=== PATIENT | female | born 1940 | race Caucasian/White ===

== ENCOUNTER 2017-10-13 09:16 | Day surgery (SDC) | payer MEDICARE, OTHER ==
[~2017-10-13 09:16] MED LIST: Lactated Ringers 1,000 ML IV SCH; Sodium Chloride 0.9% 10 ML Syringe FLUSH PRN
[2017-10-13] MEDS ORDERED: Midazolam 1 MG/ML 2 ML SDV ONE ×2 (10:15→10:19)
[2017-10-13] MEDS ORDERED: fentaNYL 100 MCG/2 ML SDV ONE ×2 (10:15→10:19)
[2017-10-13] MEDS ORDERED: Propofol 200 MG/20 ML SDV ONE ×2 (10:16→10:19)
--- NOTE | 2017-10-13 10:23 | PCM.HP ---
H&P History of Present Illness - General Date of Service: 10/13/17 Admit Problem/Dx: Admission Diagnosis/Problem Admission Diagnosis/Problem Esophagogastroduodenoscopy Source of Information: Patient, Old Records History Limitations: Reports: No Limitations - History of Present Illness Initial Comments - Free Text/Narative: Hx of nausea and vomiting for past few months Improves with: Reports: None Worsens with: Reports: None Associated Symptoms: Reports: No Other Symptoms (No blood, mostly bilious) - Related Data Allergies/Adverse Reactions: Allergies Allergy/AdvReac Type Severity Reaction Status Date / Time fish oil Allergy Other Verified 10/13/17 09:58 rosuvastatin calcium Allergy Itching Verified 10/13/17 09:58 [From Crestor] Home Medications: Home Meds Acetaminophen [Mapap] 325 mg PO Q4H PRN 03/11/16 [History] Bisoprolol/Hydrochlorothiazide [Ziac 5-6.25 MG] 1 tab PO DAILY 03/11/16 [History ] Cholecalciferol (Vitamin D3) [Vitamin D3] 1,000 unit PO DAILY 03/11/16 [History] Latanoprost [Xalatan 0.005% Ophth Soln] 2.5 ml EYEBOTH BEDTIME 03/11/16 [History ] Lisinopril [Zestril] 10 mg PO DAILY 03/11/16 [History] Multivitamin [Multivitamins] 1 each PO DAILY 03/11/16 [History] Naphazoline [AK-Con 0.1% Ophth Soln] 1 - 2 drop OP DAILY 03/11/16 [History] atorvaSTATin [Lipitor] 40 mg PO BEDTIME 03/11/16 [History] hydrOXYzine Pamoate [Vistaril] 25 mg PO BEDTIME PRN 03/11/16 [History] Warfarin [Coumadin] 5 mg PO DAILY 10/13/17 [History] Past Medical History HEENT History: Reports: Glaucoma Other HEENT History: Previously detached retina with surgery as below Cardiovascular History: Reports: High Cholesterol, Hypertension, Other (See Below) Other Cardiovascular History: AV COMPLETE HEART BLOCK, BRADYCARDIA, Respiratory History: Reports: Other (See Below) Other Respiratory History: HYPOXIA, SLEEP RELATED, PULMONARY GRANULOMA PER X- RAY. Gastrointestinal History: Reports: Diverticulosis, GI Bleed, PUD, Other (See Below) Other Gastrointestinal History: OBESITY, DUODENAL ULCER 2009 WITH BICAP COAGULATION, TUBULAR ADENOMA OF COLON, UMBILICAL HERNIA, HYPERPLASTIC POLYP, HISTORY OF ADENOMATOUS POLYPS. HX OF POSITIVE H PYLORI Genitourinary History: Reports: Other (See Below) Other Genitourinary History: RENAL CELL CANCER (HCC) RIGHT. 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 Other Dermatologic History: Seborrheic keratosis - Past Surgical History HEENT Surgical History: Reports: Cataract Surgery, Detached Retina GI Surgical History: Reports: Cholecystectomy, Colonoscopy, Hernia Repair/Other , Polypectomy, Other (See Below) Musculoskeletal Surgical History: Reports: Knee Replacement Social & Family History - Tobacco Use Smoking Status *Q: Never Smoker Second Hand Smoke Exposure: Yes - Alcohol Use Days Per Week of Alcohol Use: 0 Number of Drinks Per Day: 1 (Occasional wine every couple of months) Total Drinks Per Week: 0 - Recreational Drug Use Recreational Drug Use: No Drug Use in Last 12 Months: No - Living Situation & Occupation Living situation: Reports: , with Family Occupation: Retired H&P Review of Systems - Review of Systems: Review Of Systems: See Below General: Reports: No Symptoms Pulmonary: Reports: No Symptoms Cardiovascular: Reports: No Symptoms Gastrointestinal: Reports: Nausea Exam - Exam Exam: See Below - Vital Signs Vital Signs: Last Vital Signs Temp 98 F 10/13/17 10:06 Pulse 62 10/13/17 10:06 Resp 20 10/13/17 10:06 BP 124/73 10/13/17 10:06 Pulse Ox 96 10/13/17 10:06 Weight: 98.43 kg - Exam General: Alert, Oriented Lungs: Clear to Auscultation, Normal Respiratory Effort Cardiovascular: Regular Rate, Regular Rhythm GI/Abdominal Exam: Soft, Non-Tender Problem List Initiated/Reviewed/Updated: Yes Orders Last 24hrs: Active Orders 24 hr Category Date Time Status Patient Status [ADT] Routine ADT 10/13/17 09:15 Active Peripheral IV Care [RC] . DIRECTED Care 10/13/17 09:15 Active Verify Patient Consent Obtain [RC] ASDIRECTED Care 10/13/17 09:15 Active Lactated Ringers [Ringers, Lactated] 1,000 ml Med 10/13/17 09:15 Active IV ASDIRECTED Sodium Chloride 0.9% [Saline Flush] Med 10/13/17 09:15 Active 10 ml FLUSH ASDIRECTED PRN Peripheral IV Insertion Adult [OM.PC] Routine Oth 10/13/17 09:15 Ordered Medication Orders Lactated Ringer's (Ringers, Lactated) 1,000 mls @ 125 mls/hr IV ASDIRECTED SHIRA Last Admin: 10/13/17 09:57 Dose: 125 mls/hr Sodium Chloride (Saline Flush) 10 ml FLUSH ASDIRECTED PRN PRN Reason: Keep Vein Open Assessment/Plan Comment:: Nausea and Vomiting Ok to proceed with EGD
--- NOTE | 2017-10-13 10:38 | PCM.OPNOTE ---
- General Post-Op/Procedure Note Date of Surgery/Procedure: 10/13/17 Operative Procedure(s): EGD with Bx Findings: Gastritis Pre Op Diagnosis: N & V Primary Surgeon: Liban Dewey Anesthesia Provider: Chanda Tate Pathology: Stomach Complications: None Condition: Good
[2017-10-13 17:39] VITALS: BP 138/60
--- NOTE | 2017-10-14 08:15 | OR ---
Date of Procedure: 10/13/2017 PREOPERATIVE DIAGNOSIS: Chronic nausea and vomiting. POSTOPERATIVE DIAGNOSIS: Gastritis. PROCEDURE: EGD with biopsy. ANESTHESIA: Will be IV sedation. PROCEDURE: The patient was brought to the procedure room where she was placed on the left side and IV sedation administered. Oral bite block was placed and the upper endoscope advanced into the esophagus under direct vision without difficulty. Vocal cords were viewed and were normal. The scope was advanced to the third portion of the duodenum. Duodenum and pylorus were normal. There was mild chronic inflammation in the antrum without ulcers or erosions. I did take two biopsies from here. The body looked fairly normal without any mucosal abnormalities. I did also take two biopsies from this area. Lastly retroflexion reveals some inflammation in the fundus on the mucosal surface without ulcers or erosions. I also took two biopsies from this area. The squamocolumnar junction appears normal. There was no hiatal hernia. Air was removed from the stomach. The scope withdrawn through the remaining esophagus, which appears normal. The patient tolerated the procedure well and returned to recovery in stable condition. However, the patient began omeprazole 20 mg daily for one month and follow up with Estrellita Chakraborty at that time to see if symptoms are improving. SHERRY GONZALEZ MD /[id number]
== END 2017-10-13 12:22 | disposition home or self-care (01) ==
LOC: LL.SDS 09:16
PROVIDERS: ATTEND Surgery
DX: K29.50 Unspecified chronic gastritis without bleeding (principal); I10 Essential (primary) hypertension; E66.9 Obesity, unspecified; Z68.38 Body mass index [BMI] 38.0-38.9, adult; E78.00 Pure hypercholesterolemia, unspecified; F41.8 Other specified anxiety disorders; E03.9 Hypothyroidism, unspecified; Z86.010 Personal history of colon polyps; Z79.01 Long term (current) use of anticoagulants; Z79.899 Other long term (current) drug therapy; Z88.8 Allergy status to other drugs, medicaments and biological substances
CPT/HCPCS: 00731; 88305; J2250; J2704; J3010; J7120

== ENCOUNTER 2018-08-24 12:40 | Emergency (ER) | payer MEDICARE, OTHER ==
[2018-08-24] MEDS ORDERED: Sodium Chloride 0.9% 10 ML Syringe FLUSH PRN (12:45)
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
[2018-08-24 13:18] LABS: CHLORIDE,CL 100 mmol/L (98-107); SODIUM,NA 137 mmol/L (136-145)
[2018-08-24 13:39] VITALS: BP 150/70
== END 2018-08-24 16:00 | disposition home or self-care (01) ==
LOC: LL.ED 12:40
DX: M25.511 Pain in right shoulder (principal); R51 Headache; M54.2 Cervicalgia; R07.81 Pleurodynia; I48.91 Unspecified atrial fibrillation; F41.8 Other specified anxiety disorders; K21.9 Gastro-esophageal reflux disease without esophagitis; M15.0 Primary generalized (osteo)arthritis; I10 Essential (primary) hypertension; J44.9 Chronic obstructive pulmonary disease, unspecified; Z88.8 Allergy status to other drugs, medicaments and biological substances; Z88.2 Allergy status to sulfonamides; Z88.5 Allergy status to narcotic agent; Z88.1 Allergy status to other antibiotic agents; Z79.01 Long term (current) use of anticoagulants; Z79.899 Other long term (current) drug therapy; V53.5XXA Driver of pick-up truck or van injured in collision with car, pick-up truck or van in traffic accident, initial encounter; Z23 Encounter for immunization
CPT/HCPCS: 36415; 70260; 70450; 71046; 71120; 72040; 72170; 80053; 81001; 82150; 82550; 82553; 83605; 83690; 83735; 84484; 84550; 85025; 85610; 85730; 87086; 90662; 99284-25; G0008; G0480

== ENCOUNTER 2019-01-28 20:00 | Emergency (ER) | payer MEDICARE, OTHER ==
--- NOTE | 2019-01-28 20:12 | EDM.PDOC ---
ED HPI GENERAL MEDICAL PROBLEM - General Chief Complaint: General Stated Complaint: high blood pressure, not feeling right Time Seen by Provider: 01/28/19 20:05 Source of Information: Reports: Patient History Limitations: Reports: No Limitations - History of Present Illness INITIAL COMMENTS - FREE TEXT/NARRATIVE: Patient is a 78-year-old who has not been feeling well today has checked her blood pressure multiple times and having a high blood pressure greater than 200 systolic at this time she felt that she needed to be seen in the ER came in with her Onset: Today Duration: Hour(s):, Constant Location: Reports: Generalized Quality: Reports: Ache Severity: Moderate Worsens with: Reports: None Context: Reports: Activity Associated Symptoms: Reports: No Other Symptoms - Related Data Allergies Allergy/AdvReac Type Severity Reaction Status Date / Time fish oil Allergy Other Verified 01/28/19 20:04 meperidine [From Demerol] Allergy Other Verified 01/28/19 20:04 rosuvastatin calcium Allergy Itching Verified 01/28/19 20:04 [From Crestor] sulfamethoxazole Allergy Other Verified 01/28/19 20:04 [From Bactrim] tramadol [From Ultram] Allergy Other Verified 01/28/19 20:04 trimethoprim [From Bactrim] Allergy Other Verified 01/28/19 20:04 Home Meds: Home Meds Acetaminophen [Mapap] 325 mg PO Q4H PRN 03/11/16 [History] Bisoprolol/Hydrochlorothiazide [Ziac 5-6.25 MG] 1 tab PO BEDTIME 03/11/16 [ History] Latanoprost [Xalatan 0.005% Ophth Soln] 2.5 ml EYEBOTH BEDTIME 03/11/16 [History ] Lisinopril [Zestril] 10 mg PO BEDTIME 03/11/16 [History] Naphazoline [AK-Con 0.1% Ophth Soln] 1 - 2 drop OP BEDTIME 03/11/16 [History] atorvaSTATin [Lipitor] 40 mg PO BEDTIME 03/11/16 [History] hydrOXYzine Pamoate [Vistaril] 25 mg PO BEDTIME PRN 03/11/16 [History] Omeprazole 20 mg PO BEDTIME 30 Days #30 cap.sr 10/13/17 [Rx] Warfarin [Coumadin] 5 mg PO BEDTIME 10/13/17 [History] Citalopram [Citalopram HBr] 20 mg PO BEDTIME 01/28/19 [History] Metoprolol Succinate 25 mg PO DAILY 14 Days #14 tab.er.24h 01/28/19 [Rx] Past Medical History HEENT History: Reports: Cataract, Glaucoma, Hard of Hearing, Impaired Vision, Retinal Detachment. Denies: Allergic Rhinitis, Epistaxis, Macular Degeneration , Otitis Media Other HEENT History: Bilateral presbycusis with no current hearing aid therapy. Patient wears glasses. Previously detached retina with surgery as below Cardiovascular History: Reports: Afib, Aneurysm, Arrhythmia, High Cholesterol, Hypertension, Pacemaker, PVD, Other (See Below). 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 Left atrial enlargement and grade 1 diastolic dysfunction by echocardiogram. Dyslipidemia and obesity. Atrial fibrillation with current Coumadin therapy. Previous PSVT. Aortic valve stenosis by clinical exam. Borderline Carotid occlusive disease. D- dimer elevation on 04/28/15 Respiratory History: Reports: Bronchitis, Recurrent, COPD, Intubation, Previous , Other (See Below). Denies: Intubation, Difficult, PE, Pneumothorax, Sleep Apnea, TB Other Respiratory History: COPD by chest x-ray with no current medical therapy. Nocturnal hypoxia not currently being treated. Benign pulmonary granulomas. Gastrointestinal History: Reports: Cholelithiasis, Diverticulosis, Gastritis, GI Bleed, PUD, Other (See Below). Denies: Chronic Constipation, Chronic Diarrhea Other Gastrointestinal History: Recurrent tubular adenomas, adenomatous polyps and hyperplastic colonic polyps. Chronic gastritis with history of upper GI bleed on 08/26/08 secondary to a duodenal ulcer requiring transfusions and BiCAP coagulation. Previously treated H. pylori infection Additional umbilical local hernia. Genitourinary History: Reports: Urinary Incontinence, Other (See Below). Denies : Acute Renal Failure, Chronic Renal Insuffiency, Renal Calculus, UTI, Recurrent Other Genitourinary History: Right-sided renal cancer as below PENSION MANAGER History: Reports: , Spontaneous Other PENSION MANAGER History: Fibrocystic breast disease. SAB 2 in first trimester with no D&Cs required. Otherwise Full term without complications during pregnancies or deliveries. Menopause in 1968. Musculoskeletal History: Reports: Arthritis, Back Pain, Chronic, Gout, Neck Pain , Chronic, Osteoarthritis, Osteoporosis, Other (See Below). Denies: Fracture, RA, SLE Other Musculoskeletal History: Hyperuricemia. Polymyalgia. Positive KIMMY with no evidence of SLE. Neurological History: Reports: Headaches, Chronic, Other (See Below). Denies: Concussion, CVA, Head Trauma, Migraines, Neuropathy, Peripheral, Seizure, TIA, Vertigo Other Neuro History: INSOMNIA, Psychiatric History: Reports: Addiction, Anxiety, Depression, Other (See Below) Other Psychiatric History: Previous problems with alcohol abuse. Endocrine/Metabolic History: Reports: Hypothyroidism, Multinodular Thyroid, Obesity/BMI 30+, Other (See Below) Other Endocrine/Metabolic History: Prediabetes. Goiter. Hematologic History: Reports: Anemia, Blood Transfusion(s), Other (See Below) Other Hematologic History: She'll blood transfusions in 1968 and then again in July 2008 secondary to acute upper GI bleed as above. Immunologic History: Reports: None. Denies: AIDS, HIV, SLE Oncologic (Cancer) History: Reports: Cervix, Renal Other Oncologic History: Right sided grade 1/3 renal cell carcinoma with surgery as below with no radiation or chemotherapy required. Recurrent ASCUS last on 11/28/06. Dermatologic History: Reports: Seborrheic Dermatitis, Other (See Below) Other Dermatologic History: Seborrheic keratosis - Infectious Disease History Infectious Disease History: Reports: Measles - Past Surgical History Head Surgeries/Procedures: Reports: None HEENT Surgical History: Reports: Cataract Surgery, Detached Retina, Oral Surgery , Other (See Below) Other HEENT Surgeries/Procedures: Bilateral cataract surgery initially in 1993 then 1994. [place] teeth extraction with multiple additional teeth extractions. Left-sided detached retinal repair on 08/02/2002. YAG laser treatment of the posterior capsule in about 1995 Cardiovascular Surgical History: Reports: AAA Repair, Pacer, Other (See Below) Other Cardiovascular Surgeries/Procedures: Pacer replacement secondary to failed pacing on 04/29/15 with initial pacemaker placement on 06/16/07. Respiratory Surgical History: Reports: None. Denies: Thoracentesis GI Surgical History: Reports: Cholecystectomy, Colonoscopy, Hernia Repair/Other , Polypectomy, Other (See Below) Other GI Surgeries/Procedures: Last colonoscopy on 03/11/16 negative for colonic polyp recurrence with previous multiple tubular adenomas removed at time of previous colonoscopy on 10/26/12 and also during multiple previous colonoscopies.. EGD with biopsy on 10/13/17 positive for mild gastritis with negative H. pylori evaluation after previous EGD on 10/26/12. Laparoscopic cholecystectomy with concomitant umbilical hernia repair on 08/19/03. BiCAP of duodenal ulcer on 08/26/08. Female Surgical History: Reports: D&C, Other (See Below). Denies: Breast Biopsy, Section, Hysterectomy, Oophorectomy, Salpingo-Oophorectomy, Tubal Ligation Other Female Surgeries/Procedures: D&C secondary to retained placenta in about 1968. Endocrine Surgical History: Reports: None. Denies: Thyroid Biopsy Neurological Surgical History: Reports: None. Denies: C-Spine, Discectomy, Laminectomy, Lumbar Spine, Sacral Spine, Spinal Fusion, Thoracic Spine, Vertebroplasty Musculoskeletal Surgical History: Reports: Joint Replacement, Knee Replacement, Other (See Below) Other Musculoskeletal Surgeries/Procedures:: Bilateral TKA in about October 2010. Oncologic Surgical History: Reports: Other (See Below) Other Oncologic Surgeries/Procedures: Right-sided radical laparoscopic nephrectomy secondary to renal cancer on 06/13/07 Dermatological Surgical History: Reports: None - Past Imaging History Past Imaging History: Reports: Cardiac Echo (Last echocardiogram on 12/07/16 showed an ejection fraction of 5560 percent with otherwise findings as above. Previous echocardiogram on 04/29/15.), Carotid US (Last on 04/17/07), CAT Scan ( Negative CTA of the chest on 04/28/15.), DEXA Scan (Last on 03/29/12.), Mammogram (Last on 08/28/13.), Stress Testing ( Positive Cardiolite stress test on 01/25/13 with ejection fraction of 62%.), Ultrasound (Thyroid ultrasound on 08/29/17 and . Abdominal ultrasound on 08/29/17 and 04/17/07.), Upper GI X-Ray/Series (10/26), Venous Doppler (Left leg on 05/25/12.), Other (See Below) (Last colposcopy on 04/12/07.) Social & Family History - Family History HEENT: Reports: Macular Degeneration, Other (See Below) Other HEENT Family History: Father with unknown type of blindness. Sister with macular degeneration. Cardiac: Reports: CAD, Hypertension, LA, Other (See Below) Other Cardiac Family History: Mother with LA in her 70s with fatal LA at age 81. Father with hypertension. Respiratory: Reports: Sleep Apnea, Other (See Below) Other Respiratory Family Hisory: Sister with sleep apnea. Neurological: Reports: Alzheimers Disease, Dementia, Other (See Below) Other Neurological Family History: Sister with dementia. Mother with CVA in her 70s. Brother with recurrent CVAs and TIAs since age 77. Psychiatric: Reports: Anxiety, Bipolar, Depression, Other (See Below) Other Psychiatric Family History: Nephew with bipolar disorder. Endocrine/Metabolic: Reports: Diabetes, type II, Hypothyroidism, IDDM, Other ( See Below) Other Endocrine/Metabolic Family History: Mother with IDDM and goiter. Oncologic: Reports: Pancreatic, Other (See Below) Other Oncologic Family History: Mother with fatal pancreatic cancer at age 75. Niece with renal cancer in her 40s. Niece with Shyanne's disease in her 30s and additional renal cancer in her 40s. - Caffeine Use Caffeine Use: Reports: Coffee (4 cups per day), Soda (Occasional). 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[employer]) ED ROS GENERAL - Review of Systems Review Of Systems: See Below Constitutional: Reports: Weakness, Fatigue HEENT: Reports: No Symptoms Respiratory: Reports: No Symptoms Cardiovascular: Reports: No Symptoms Endocrine: Reports: No Symptoms GI/Abdominal: Reports: No Symptoms : Reports: No Symptoms Musculoskeletal: Reports: No Symptoms Skin: Reports: No Symptoms ED EXAM, GENERAL - Physical Exam Exam: See Below Exam Limited By: No Limitations General Appearance: Alert, WD/WN, No Apparent Distress Eye Exam: Bilateral Eye: EOMI, PERRL Ears: Normal External Exam, Normal Canal, Hearing Grossly Normal, Normal TMs Ear Exam: Bilateral Ear: Auricle Normal, Canal Normal, TM normal Nose: Normal Inspection, Normal Mucosa, No Blood Throat/Mouth: Normal Inspection, Normal Lips, Normal Teeth, Normal Gums, Normal Oropharynx, Normal Voice, No Airway Compromise Head: Atraumatic, Normocephalic Neck: Normal Inspection, Supple, Non-Tender, Full Range of Motion Respiratory/Chest: No Respiratory Distress, Lungs Clear, Normal Breath Sounds, No Accessory Muscle Use, Chest Non-Tender Cardiovascular: Normal Peripheral Pulses, Regular Rate, Rhythm, No Edema, No Gallop, No JVD, No Murmur, No Rub GI/Abdominal: Normal Bowel Sounds, Soft, Non-Tender, No Organomegaly, No Distention, No Abnormal Bruit, No Mass Back Exam: Normal Inspection, Full Range of Motion, NT Extremities: Pedal Edema (Trace) Neurological: Alert, Oriented, CN II-XII Intact, Normal Cognition, Normal Gait, Normal Reflexes, No Motor/Sensory Deficits Psychiatric: Normal Affect, Normal Mood Skin Exam: Warm, Dry, Intact, Normal Color, No Rash Lymphatic: No Adenopathy Course - Vital Signs Last Recorded V/S: Last Vital Signs Temp 97.9 F 01/28/19 20:02 Pulse 62 01/28/19 22:00 Resp 17 01/28/19 21:41 BP 157/78 H 01/28/19 22:22 Pulse Ox 97 01/28/19 21:41 - Orders/Labs/Meds Labs: Laboratory Tests 01/28/19 01/28/19 01/28/19 Range/Units 20:20 20:20 20:20 WBC 5.8 (4.0-10.2) K/uL RBC 3.89 (3.77-5.09) M/uL Hgb 11.9 (11.7-15.5) g/dL Hct 35.3 (34.0-46.0) % MCV 90.7 (84.0-98.0) fL MCH 30.6 (28.2-33.3) pg MCHC 33.7 (31.7-36.0) g/dL RDW 13.4 (11.2-14.1) % Plt Count 209 (150-350) K/uL Neut % (Auto) 60.7 (45.0-80.0) % Lymph % (Auto) 29.1 (10.0-50.0) % Phillips % (Auto) 8.9 (2.0-14.0) % Eos % (Auto) 1.0 (0.0-5.0) % Baso % (Auto) 0.3 (0.0-2.0) % Neut # (Auto) 3.54 (1.40-7.00) K/uL Lymph # (Auto) 1.70 (0.50-3.50) K/uL Phillips # (Auto) 0.52 (0.00-1.00) K/uL Eos # (Auto) 0.06 (0.00-0.50) K/uL Baso # (Auto) 0.02 (0.00-0.20) K/uL PT 12.9 H D (9.5-12.0) SEC INR 1.2 Sodium 141 (136-145) mmol/L Potassium 3.3 L (3.5-5.1) mmol/L Chloride 104 (98-107) mmol/L Carbon Dioxide 31.0 (21.0-32.0) mmol/L BUN 17 (7-18) mg/dL Creatinine 0.89 (0.51-1.17) mg/dL Est Cr Clr Drug Dosing TNP Estimated GFR (MDRD) > 60 mL/min Glucose 143 H (74-106) mg/dL Calcium 8.5 (8.5-10.1) mg/dL NT-Pro-B Natriuret Pep 450 H (0-125) pg/mL Meds: Medications Discontinued Medications Generic Name Dose Route Start Last Admin Trade Name Freq PRN Reason Stop Dose Admin Labetalol HCl 100 mg 01/28/19 20:56 01/28/19 21:00 Normodyne PO 100 mg BID SHIRA Administration Labetalol HCl 100 mg 01/28/19 21:54 01/28/19 22:00 Normodyne PO 01/28/19 21:55 100 mg ONETIME ONE Administration Departure - Departure Time of Disposition: 22:48 Disposition: Home, Self-Care 01 Clinical Impression: Hypertension Qualifiers: Hypertension type: essential hypertension Qualified Code(s): I10 - Essential ( primary) hypertension - Discharge Information *PRESCRIPTION DRUG MONITORING PROGRAM REVIEWED*: No *COPY OF PRESCRIPTION DRUG MONITORING REPORT IN PATIENT KILEY: No Prescriptions: Metoprolol Succinate 25 mg PO DAILY 14 Days #14 tab.er.24h Instructions: Hypertension, [id number] Referrals: Estrellita Chakraborty, [facility]ER [Primary Care Provider] - Forms: ED Department Discharge Additional Instructions: INR low at 1.2, take an extra 1/2 tablet of coumadin when you get home. New prescription for potassium and metoprolol succinate- shredder picker and start taking tomorrow. Make appointment to get INR rechecked and follow up with provider about high blood pressure/ new blood pressure medication and have potassium level rechecked. Bring this instructions with you to your follow up appointment.
[2019-01-28 20:46] LABS: CHLORIDE,CL 104 mmol/L (98-107); SODIUM,NA 141 mmol/L (136-145)
[2019-01-28] MEDS ORDERED: Labetalol 100 MG Tab PO SCH (20:56)
[2019-01-28] MEDS ORDERED: Labetalol 100 MG Tab PO ONE (21:54)
[2019-01-29 00:34] VITALS: PULSE 67
[2019-01-29 00:35] VITALS: BP 157/78
== END 2019-01-28 22:48 | disposition home or self-care (01) ==
LOC: LL.ED 20:00
DX: I10 Essential (primary) hypertension (principal); I48.91 Unspecified atrial fibrillation; E78.00 Pure hypercholesterolemia, unspecified; J44.9 Chronic obstructive pulmonary disease, unspecified; F41.9 Anxiety disorder, unspecified; F32.9 Major depressive disorder, single episode, unspecified; E03.9 Hypothyroidism, unspecified; Z91.013 Allergy to seafood; Z88.5 Allergy status to narcotic agent; Z88.1 Allergy status to other antibiotic agents; Z88.8 Allergy status to other drugs, medicaments and biological substances; Z79.899 Other long term (current) drug therapy; Z79.01 Long term (current) use of anticoagulants; Z95.0 Presence of cardiac pacemaker
CPT/HCPCS: 36415; 71046; 80048; 83880; 85025; 85610; 93005; 99284; A9270; 99283

== ENCOUNTER 2019-12-26 18:07 | Emergency (ER) | payer MEDICARE, OTHER ==
[2019-12-26] MEDS ORDERED: Sodium Chloride 0.9% 10 ML Syringe FLUSH PRN (18:09)
--- NOTE | 2019-12-26 18:09 | EDM.PDOC ---
ED HPI GENERAL MEDICAL PROBLEM - General Chief Complaint: Lower Extremity Injury/Pain Stated Complaint: "felt a pop in her hip" Time Seen by Provider: 12/26/19 18:09 Source of Information: Reports: Patient, EMS, EMS Notes Reviewed (Not available at time of dictation), Family, Old Records ([facility] chart/EMR) History Limitations: Reports: No Limitations - History of Present Illness INITIAL COMMENTS - FREE TEXT/NARRATIVE: The patient was brought to the emergency room via ambulance with fence installer foreman accompaniment with no treatment in route. Note that the patient was leaning forward while sitting in a chair at home to picker and packer an object on the floor when she suddenly heard a pop in her right hip with 10/10 pain with movement and 78/10 at rest. No history of fall, head injury, neck/back pain, neurological deficits, or other complaints or injuries. The patient denies any chest pain/pressure, heart flutter, dizziness, orthostasis, orthopnea, diaphoresis, paresthesias, recent decreased exercise tolerance, or any other anginal-type symptoms. No recent history of abdominal pain, heartburn, nausea, diarrhea, melena, gross hematochezia, or any food intolerance, including fatty foods, etc.. She denies any gross hematuria, colic, UTI symptoms. The patient also denies any recent fever, cough, wheezing, dyspnea, etc.. No history of recent headaches, visual changes, diplopia, change in mental status, or other change in neurological status. Onset: Today, Sudden Onset Date: 12/26/19 Onset Time: 17:30 Duration: Constant Location: Reports: Lower Extremity, Right. Denies: Head, Face, Neck, Chest, Abdomen, Back, Pelvis, Upper Extremity, Left, Upper Extremity, Right, Lower Extremity, Left, Radiates to Quality: Reports: Sharp, Stabbing Severity: Severe Improves with: Reports: Rest Worsens with: Reports: Movement Context: Reports: Trauma (As above). Denies: Sick Contact Associated Symptoms: Denies: Confusion, Chest Pain, Cough, Diaphoresis, Fever/Chills, Headaches, Loss of Appetite, Malaise, Nausea/Vomiting, Shortness of Breath, Syncope, Weakness Treatments INBOUND SALES REPRESENTATIVE: Reports: Other (see below) (None) Right Hip Pain Score (Numeric/FACES): 8 - Related Data Allergies Allergy/AdvReac Type Severity Reaction Status Date / Time fish oil Allergy Other Verified 12/26/19 18:09 meperidine [From Demerol] Allergy Other Verified 12/26/19 18:09 rosuvastatin calcium Allergy Itching Verified 12/26/19 18:09 [From Crestor] sulfamethoxazole Allergy Other Verified 12/26/19 18:09 [From Bactrim] tramadol [From Ultram] Allergy Other Verified 12/26/19 18:09 trimethoprim [From Bactrim] Allergy Other Verified 12/26/19 18:09 Home Meds: Home Meds Acetaminophen [Mapap] 325 mg PO Q4H PRN 03/11/16 [History] Latanoprost [Xalatan 0.005% Ophth Soln] 2.5 ml EYEBOTH BEDTIME 03/11/16 [History] Naphazoline [AK-Con 0.1% Ophth Soln] 1 - 2 drop OP BEDTIME 03/11/16 [History] atorvaSTATin [Lipitor] 40 mg PO BEDTIME 03/11/16 [History] hydrOXYzine Pamoate [Vistaril] 25 mg PO BEDTIME PRN 03/11/16 [History] lisinopriL [Zestril] 10 mg PO BEDTIME 03/11/16 [History] Omeprazole 20 mg PO BEDTIME 30 Days #30 cap.sr 10/13/17 [Rx] Warfarin [Coumadin] 5 mg PO ASDIRECTED 10/13/17 [History] Metoprolol Succinate 25 mg PO DAILY 14 Days #14 tab.er.24h 01/28/19 [Rx] Metoclopramide HCl 1 tab PO Q6HR PRN 12/26/19 [History] Warfarin Sodium [Coumadin] 1 tab PO TH 12/26/19 [History] busPIRone [Buspar] 5 mg PO DAILY PRN 12/26/19 [History] traMADol [Ultram] 1 tab PO Q6HR PRN 12/26/19 [History] traZODone HCl [Trazodone HCl] 1 tab PO BEDTIME 12/26/19 [History] Past Medical History HEENT History: Reports: Cataract, Glaucoma, Hard of Hearing, Impaired Vision, Retinal Detachment. Denies: Allergic Rhinitis, Epistaxis, Macular Degeneration, Otitis Media Other HEENT History: Bilateral presbycusis with no current hearing aid therapy. Patient wears glasses. Previously detached retina with surgery as below Cardiovascular History: Reports: Afib, Aneurysm, Arrhythmia, High Cholesterol, Hypertension, Pacemaker, PVD, Other (See Below). 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 Left atrial enlargement and grade 1 diastolic dysfunction by echocardiogram. Dyslipidemia and obesity. Atrial fibrillation with current Coumadin therapy. Previous PSVT. Aortic valve stenosis by clinical exam. Borderline Carotid occlusive disease. D- dimer elevation on 04/28/15 Respiratory History: Reports: Bronchitis, Recurrent, COPD, Intubation, Previous, Other (See Below). Denies: Intubation, Difficult, PE, Pneumothorax, Sleep Apnea, TB Other Respiratory History: COPD by chest x-ray with no current medical therapy. Nocturnal hypoxia not currently being treated. Benign pulmonary granulomas. Gastrointestinal History: Reports: Cholelithiasis, Chronic Constipation, Diverticulosis, Gastritis, GERD, GI Bleed, Helicobacter Pylori, PUD, Other (See Below). Denies: Celiac Disease, Chronic Diarrhea, Inflammatory Bowel Disease, Irritable Bowel Syndrome Other Gastrointestinal History: Diverticulosis with history of diverticulitis on 03/29/19. Recurrent tubular adenomas, adenomatous polyps and hyperplastic colonic polyps. Chronic gastritis with history of upper GI bleed on 08/26/08 secondary to a duodenal ulcer requiring transfusions and BiCAP coagulation. Previously treated H. pylori infection Additional umbilical hernia. Genitourinary History: Reports: Urinary Incontinence, Other (See Below). Denies: Acute Renal Failure, Chronic Renal Insuffiency, Renal Calculus, UTI, Recurrent Other Genitourinary History: Right-sided renal cancer as below TRUST CLERK History: Reports: , Spontaneous : 4 Para: 2 LMP (Approximate): Other (See Below) Other TRUST CLERK History: Fibrocystic breast disease. SAB 2 in first trimester with no D&Cs required. Otherwise Full term without complications during pregnancies or deliveries. Menopause in 1968. Musculoskeletal History: Reports: Arthritis, Back Pain, Chronic, Gout, Neck Pain, Chronic, Osteoarthritis, Osteoporosis, Other (See Below). Denies: Fracture, RA, SLE Other Musculoskeletal History: Hyperuricemia. Polymyalgia. Positive KIMMY with no evidence of SLE. Neurological History: Reports: Headaches, Chronic, Other (See Below). Denies: Concussion, CVA, Head Trauma, Migraines, Neuropathy, Peripheral, Seizure, TIA, Vertigo Other Neuro History: INSOMNIA, Psychiatric History: Reports: Addiction, Anxiety, Depression, Other (See Below) Other Psychiatric History: Previous problems with alcohol abuse. Endocrine/Metabolic History: Reports: Hypothyroidism, Multinodular Thyroid, Obesity/BMI 30+, Other (See Below) Other Endocrine/Metabolic History: Prediabetes. Goiter. Hematologic History: Reports: Anemia, Blood Transfusion(s), Other (See Below) Other Hematologic History: Blood transfusions in 1968 and then again in July 2008 secondary to acute upper GI bleed as above. Immunologic History: Reports: None. Denies: AIDS, HIV, SLE Oncologic (Cancer) History: Reports: Cervix, Renal Other Oncologic History: Right sided grade 1/3 renal cell carcinoma with surgery as below with no radiation or chemotherapy required. Recurrent ASCUS last on 11/28/06. Dermatologic History: Reports: Seborrheic Dermatitis, Other (See Below) Other Dermatologic History: Seborrheic keratosis - Infectious Disease History Infectious Disease History: Reports: Measles - Past Surgical History Head Surgeries/Procedures: Reports: None HEENT Surgical History: Reports: Cataract Surgery, Detached Retina, Oral Surgery, Other (See Below) Other HEENT Surgeries/Procedures: Bilateral cataract surgery initially in 1993 then 1994. [place] teeth extraction with multiple additional teeth extractions. Left-sided detached retinal repair on 08/02/2002. YAG laser treatment of the posterior capsule in about 1995 Cardiovascular Surgical History: Reports: AAA Repair, Pacer, Other (See Below) Other Cardiovascular Surgeries/Procedures: Pacer replacement secondary to failed pacing on 04/29/15 with initial pacemaker placement on 06/16/07. Respiratory Surgical History: Reports: None. Denies: Thoracentesis GI Surgical History: Reports: Cholecystectomy, Colonoscopy, Hernia Repair/Other, Polypectomy, Other (See Below) Other GI Surgeries/Procedures: Last colonoscopy on 03/11/16 negative for colonic polyp recurrence with previous multiple tubular adenomas removed at time of previous colonoscopy on 10/26/12 and also during multiple previous colonoscopies.. EGD with biopsy on 10/13/17 positive for mild gastritis with negative H. pylori evaluation after previous EGD on 10/26/12. Laparoscopic cholecystectomy with concomitant umbilical hernia repair on 08/19/03. BiCAP of duodenal ulcer on 08/26/08. Female Surgical History: Reports: D&C, Other (See Below). Denies: Breast Biopsy, Section, Hysterectomy, Oophorectomy, Salpingo-Oophorectomy, Tubal Ligation Other Female Surgeries/Procedures: D&C secondary to retained placenta in about 1968. Endocrine Surgical History: Reports: None. Denies: Thyroid Biopsy Neurological Surgical History: Reports: None. Denies: C-Spine, Discectomy, Laminectomy, Lumbar Spine, Sacral Spine, Spinal Fusion, Thoracic Spine, Vertebroplasty Musculoskeletal Surgical History: Reports: Hip Replacement, Joint Replacement, Knee Replacement, Other (See Below) Other Musculoskeletal Surgeries/Procedures:: Left hip TEP on 12/04/19. Bilateral TKA in about October 2010. Oncologic Surgical History: Reports: Other (See Below) Other Oncologic Surgeries/Procedures: Right-sided radical laparoscopic nephrectomy secondary to renal cancer on 06/13/07 Dermatological Surgical History: Reports: None - Past Imaging History Past Imaging History: Reports: Cardiac Echo (Last echocardiogram on 12/07/16 showed an ejection fraction of 5560 percent with otherwise findings as above. Previous echocardiogram on 04/29/15.), Carotid US (Last on 04/17/07), CAT Scan (CT scan of the abdomen and pelvis on 03/29/19. CT of the head on 08/24/18. Negative CTA of the chest on 04/28/15.), DEXA Scan (Last on 03/29/12.), Mammogram (Last on 08/28/13.), Stress Testing ( Positive Cardiolite stress test on 01/25/13 with ejection fraction of 62%.), Ultrasound (Thyroid ultrasound on 08/29/17 and 08/23/17. Abdominal ultrasound on 08/29/17 and 04/17/07.), Upper GI X-Ray/Series (10/26/12), Venous Doppler (Right leg venous Doppler study on 12/13/19. Left leg on 05/25/12.), Other (See Below) (Last colposcopy on 04/12/07.) Social & Family History - Family History HEENT: Reports: Macular Degeneration, Other (See Below) Other HEENT Family History: Father with unknown type of blindness. Sister with macular degeneration. Cardiac: Reports: CAD, Hypertension, ID, Other (See Below) Other Cardiac Family History: Mother with ID in her 70s with fatal ID at age 81. Father with hypertension. Respiratory: Reports: Sleep Apnea, Other (See Below) Other Respiratory Family Hisory: Sister with sleep apnea. Neurological: Reports: Alzheimers Disease, CVA, Dementia, TIA, Other (See Below) Other Neurological Family History: Sister with dementia. Mother with CVA in her 70s. Brother with recurrent CVAs and TIAs since age 77. Psychiatric: Reports: Anxiety, Bipolar, Depression, Other (See Below) Other Psychiatric Family History: Nephew with bipolar disorder. Endocrine/Metabolic: Reports: Diabetes, type II, Hypothyroidism, IDDM, Other (See Below) Other Endocrine/Metabolic Family History: Mother with IDDM and goiter. Oncologic: Reports: Pancreatic, Renal, Other (See Below) Other Oncologic Family History: Mother with fatal pancreatic cancer at age 75. Niece with renal cancer in her 40s. Niece with Shyanne's disease in her 30s and additional renal cancer in her 40s. - Tobacco Use Smoking Status *Q: Never Smoker Tobacco Use Within Last Twelve Months: No Used Tobacco, but Quit: No Smoking Cessation Information Provided To Patient: No Second Hand Smoke Exposure: No Second Hand Smoke Education Provided: No - Caffeine Use Caffeine Use: Reports: Coffee (4 cups per day), Soda (Occasional). Denies: Energy Drinks, Tea - Alcohol Use Alcohol Use History: Yes Days Per Week of Alcohol Use: 0 Number of Drinks Per Day: 1 Number of Drinks Per Day Comment: Usually wine every couple of months. Note previous history of alcohol abuse as above. 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 ED EXAM, GENERAL - Physical Exam Exam: See Below Exam Limited By: No Limitations General Appearance: Alert, WD/WN, No Apparent Distress, Anxious (Moderate) Head: Atraumatic, Normocephalic. No: Facial Swelling, Facial Tenderness, Sinus Tenderness Neck: Normal Inspection, Supple, Non-Tender, Full Range of Motion, Carotid Bruit (Mild bilateral carotid bruits) Respiratory/Chest: No Respiratory Distress, Lungs Clear, Normal Breath Sounds, No Accessory Muscle Use, Chest Non-Tender. No: Pleural Rub, Retractions Cardiovascular: Normal Peripheral Pulses, No Edema, No Gallop, No JVD, No Murmur, No Rub, Irregularly Irregular. No: Gallop/S3, Gallop/S4, Friction Rub Peripheral Pulses: 2+: Radial (L), Radial (R), Dorsalis Pedis (L), Dorsalis Pedis (R) GI/Abdominal: Normal Bowel Sounds, Soft, Non-Tender, No Organomegaly, No Distention, No Abnormal Bruit, No Mass, Pelvis Stable, Other (obese). No: Guarding (Female) Exam: Deferred Rectal (Female) Exam: Deferred Back Exam: Full Range of Motion, Other (Scoliosismild). No: CVA Tenderness (L), CVA Tenderness (R), Muscle Spasm, Paraspinal Tenderness, Vertebral Tenderness Extremities: No Pedal Edema, Normal Capillary Refill, Leg Pain (Right hip), Limited Range of Motion (Right hip), Other (Mild shortening and moderate inner rotation of the left leg with moderate discomfort with movement of the left hip). No: Joint Swelling, Joyce's Sign Neurological: Alert, Oriented, CN II-XII Intact, Normal Cognition, Normal Reflexes (Negative Babinski's), No Motor/Sensory Deficits Psychiatric: Anxious (Moderate). No: Depressed Mood Skin Exam: Warm, Dry, Intact, No Rash, Ecchymosis (Mild ecchymosis on forearms bilaterally secondary to blood draws earlier today.). No: Diaphoretic, Wound/Incision Lymphatic: No Adenopathy Course - Vital Signs Last Recorded V/S: Last Vital Signs Temp 36.8 C 12/26/19 18:20 Pulse 67 12/26/19 19:21 Resp 20 12/26/19 19:21 BP 172/78 H 12/26/19 19:21 Pulse Ox 99 12/26/19 19:21 Vital Signs - 24 hr 12/26/19 12/26/19 12/26/19 18:20 18:42 19:05 Temperature [ 36.8 C Oral] Pulse, 74 57 L 61 Peripheral [ Pulse Oximetry] Respiratory 18 16 20 Rate Blood Pressure 187/143 H 205/96 H 153/71 H [Left Upper Arm ] O2 Sat by Pulse 99 97 96 Oximetry 12/26/19 19:21 Temperature [ Oral] Pulse, 67 Peripheral [ Pulse Oximetry] Respiratory 20 Rate Blood Pressure 172/78 H [Left Upper Arm ] O2 Sat by Pulse 99 Oximetry - Orders/Labs/Meds Orders: Active Orders 24 hr Category Date Time Status Cardiac Monitoring [RC] . DIRECTED Care 12/26/19 18:39 Active Peripheral IV Care [RC] . DIRECTED Care 12/26/19 18:10 Active Pelvis 1V or 2V [CR] Stat Exams 12/26/19 18:32 Taken Sodium Chloride 0.9% [Saline Flush] Med 12/26/19 18:09 Active 10 ml FLUSH ASDIRECTED PRN Obtain Past Medical Record [OM.PC] Routine Oth 12/26/19 18:09 Active Peripheral IV Insertion Adult [OM.PC] Routine Oth 12/26/19 18:09 Ordered Medication Orders Sodium Chloride (Saline Flush) 10 ml FLUSH ASDIRECTED PRN PRN Reason: Keep Vein Open Last Admin: 12/26/19 18:34 Dose: 10 ml Documented by: DWAYNE Labs: None Meds: Medications Generic Name Dose Route Start Last Admin Trade Name Freq PRN Reason Stop Dose Admin Sodium Chloride 10 ml 12/26/19 18:09 12/26/19 18:34 Saline Flush FLUSH 10 ml ASDIRECTED PRN Administration Keep Vein Open Discontinued Medications Generic Name Dose Route Start Last Admin Trade Name Freq PRN Reason Stop Dose Admin Hydromorphone HCl 1 mg 12/26/19 18:10 12/26/19 18:37 Dilaudid IVPUSH 12/26/19 18:11 1 mg ONETIME ONE Administration Labetalol HCl 10 mg 12/26/19 18:49 12/26/19 18:54 Normodyne IVPUSH 12/26/19 18:50 10 mg ONETIME ONE Administration Protocol Ondansetron HCl 4 mg 12/26/19 18:10 12/26/19 18:33 Zofran IVPUSH 12/26/19 18:11 4 mg ONETIME ONE Administration - Radiology Interpretation Free Text/Narrative:: teletypesetter monitor shows atrial fibrillation with initial heart rate in the 90s with subsequent improvement to the 60-70s after medical therapy with occasional paced rhythm and PVCs. X-rays of the pelvis, one view, shows a severe anterior superior dislocation of her right TEP. No evidence of fracture, etc. Departure - Departure Time of Disposition: 19:30 Disposition: DC/Tfer to Acute Hospital 02 Condition: Good Clinical Impression: Mixed anxiety depressive disorder, Peptic reflux disease, PVCs (premature ventricular contractions) Anterior dislocation of right hip Qualifiers: Encounter type: initial encounter Qualified Code(s): S73.034A - Other anterior dislocation of right hip, initial encounter Hypertension Qualifiers: Hypertension type: essential hypertension Qualified Code(s): I10 - Essential (primary) hypertension COPD (chronic obstructive pulmonary disease) Qualifiers: COPD type: unspecified COPD Qualified Code(s): J44.9 - Chronic obstructive pulmonary disease, unspecified Osteoarthritis Qualifiers: Osteoarthritis location: multiple joints Osteoarthritis type: primary Qualified Code(s): M89.49 - Other hypertrophic osteoarthropathy, multiple sites Atrial fibrillation Qualifiers: Atrial fibrillation type: longstanding persistent Qualified Code(s): I48.11 - Longstanding persistent atrial fibrillation - Discharge Information *PRESCRIPTION DRUG MONITORING PROGRAM REVIEWED*: Not Applicable *COPY OF PRESCRIPTION DRUG MONITORING REPORT IN PATIENT KILEY: Not Applicable Referrals: Olga Armenta PA-C [Primary Care Provider] - Forms: ED Department Discharge, Interfacility Transfer [facility] Sepsis Event Note (ED) - Focused Exam Vital Signs: Vital Signs Temp Pulse Resp BP Pulse Ox 12/26/19 19:21 67 20 172/78 H 99 12/26/19 19:05 61 20 153/71 H 96 12/26/19 18:42 57 L 16 205/96 H 97 12/26/19 18:20 36.8 C 74 18 187/143 H 99 - Problem List & Annotations (1) Anterior dislocation of right hip SNOMED Code(s): 939050339 Code(s): S73.034A - OTHER ANTERIOR DISLOCATION OF RIGHT HIP, INITIAL ENCOUNTER Status: Acute Priority: High Current Visit: No Onset Date: 12/26/19 Annotation/Comment:: Telephone consultation with [facility] at 18:30 hours and then again at 18:[address] Winters, orthopedic surgeon, is requesting that the patient be initially evaluated in the emergency room with Dr. Carter, ER physician, accepting the patient for further evaluation, with no further treatment recommendations given. IV Dilaudid was used for pain control with additional medication in route by the fence installer foreman as needed. Ambulance trans su with fence installer foreman accompaniment. Her last solid and fluid intake at noon today. Qualifiers: Encounter type: initial encounter Qualified Code(s): S73.034A - Other anterior dislocation of right hip, initial encounter (2) Atrial fibrillation SNOMED Code(s): 59100536 Code(s): I48.91 - UNSPECIFIED ATRIAL FIBRILLATION Status: Chronic Priority: High Current Visit: No Annotation/Comment:: By patient history INR through the [facility] in [place] was therapeutic at 3.0 earlier today. Additional blood work was also collected today in that clinic by her history. No recent chest pain or anginal complaints. Qualifiers: Atrial fibrillation type: longstanding persistent Qualified Code(s): I48.11 - Longstanding persistent atrial fibrillation (3) COPD (chronic obstructive pulmonary disease) SNOMED Code(s): 64940938 Code(s): J44.9 - CHRONIC OBSTRUCTIVE PULMONARY DISEASE, UNSPECIFIED Status: Chronic Priority: Medium Current Visit: No Annotation/Comment:: Stable by history with no recent fever or bronchitic type symptoms. Qualifiers: COPD type: unspecified COPD Qualified Code(s): J44.9 - Chronic obstructive pulmonary disease, unspecified (4) PVCs (premature ventricular contractions) SNOMED Code(s): 25110445 Code(s): I49.3 - VENTRICULAR PREMATURE DEPOLARIZATION Status: Acute Priority: Medium Current Visit: No Onset Date: 12/26/19 Annotation/Comment:: Observe for now. Normodyne given as above. (5) Hypertension SNOMED Code(s): 14623063 Code(s): I10 - ESSENTIAL (PRIMARY) HYPERTENSION Status: Chronic Priority: High Current Visit: No Annotation/Comment:: Blood pressure significantly elevated in the emergency room secondary to her pain, although her blood pressures have been under somewhat moderate control recently by her history. Persistent elevated blood pressure after IV Dilaudid with significant improvement after IV Normodyne in the emergency room. Continue to observe tamiko leyva by her accepting and regular providers. Qualifiers: Hypertension type: essential hypertension Qualified Code(s): I10 - Essential (primary) hypertension (6) Mixed anxiety depressive disorder SNOMED Code(s): 897847144 Code(s): F41.8 - OTHER SPECIFIED ANXIETY DISORDERS Status: Chronic Priority: Medium Current Visit: No Annotation/Comment:: Stable by history however moderate control based on today's exam. Continue to observe closely by her regular provider. (7) Osteoarthritis SNOMED Code(s): 897744772 Code(s): M19.90 - UNSPECIFIED OSTEOARTHRITIS, UNSPECIFIED SITE Status: Chronic Priority: Medium Current Visit: No Annotation/Comment:: Otherwise Stable by history with no other significant injuries. Qualifiers: Osteoarthritis location: multiple joints Osteoarthritis type: primary Qualified Code(s): M89.49 - Other hypertrophic osteoarthropathy, multiple sites (8) Peptic reflux disease SNOMED Code(s): 396020586 Code(s): K21.9 - GASTRO-ESOPHAGEAL REFLUX DISEASE WITHOUT ESOPHAGITIS Status: Chronic Priority: Medium Current Visit: No Annotation/Comment:: Stable by history with current medical therapy - Problem List Review Problem List Initiated/Reviewed/Updated: Yes - My Orders Last 24 Hours: My Active Orders 12/26/19 18:09 Sodium Chloride 0.9% [Saline Flush] 10 ml FLUSH ASDIRECTED PRN Obtain Past Medical Record [OM.PC] Routine Peripheral IV Insertion Adult [OM.PC] Routine 12/26/19 18:10 Peripheral IV Care [RC] . DIRECTED 12/26/19 18:32 Pelvis 1V or 2V [CR] Stat 12/26/19 18:39 Cardiac Monitoring [RC] . DIRECTED - Assessment/Plan Last 24 Hours: My Active Orders 12/26/19 18:09 Sodium Chloride 0.9% [Saline Flush] 10 ml FLUSH ASDIRECTED PRN Obtain Past Medical Record [OM.PC] Routine Peripheral IV Insertion Adult [OM.PC] Routine 12/26/19 18:10 Peripheral IV Care [RC] . DIRECTED 12/26/19 18:32 Pelvis 1V or 2V [CR] Stat 12/26/19 18:39 Cardiac Monitoring [RC] . DIRECTED Assessment:: As above Plan: As above. Extensive precautions were given to the patient and her , who are in agreement with the treatment plan. Ambulance transfer with fence installer foreman accompaniment as above.
[2019-12-26] MEDS ORDERED: Ondansetron 4 MG/2 ML SDV IVPUSH ONE (18:10)
[2019-12-26] MEDS ORDERED: HYDROmorphone 1 MG/ML Syringe IVPUSH ONE (18:10)
[2019-12-26] MEDS ORDERED: Labetalol 20 MG/4 ML Syringe IVPUSH ONE (18:49)
[2019-12-26 19:23] VITALS: BP 172/78; PULSE 67
== END 2019-12-26 19:30 ==
LOC: LL.ED 18:07
DX: T84.020A Dislocation of internal right hip prosthesis, initial encounter (principal); I10 Essential (primary) hypertension; J44.9 Chronic obstructive pulmonary disease, unspecified; M89.49 Other hypertrophic osteoarthropathy, multiple sites; I48.11 Longstanding persistent atrial fibrillation; F41.8 Other specified anxiety disorders; K21.9 Gastro-esophageal reflux disease without esophagitis; I49.3 Ventricular premature depolarization; E78.00 Pure hypercholesterolemia, unspecified; E03.9 Hypothyroidism, unspecified; E66.9 Obesity, unspecified; Z79.01 Long term (current) use of anticoagulants; Z79.899 Other long term (current) drug therapy; W07.XXXA Fall from chair, initial encounter; Y92.009 Unspecified place in unspecified non-institutional (private) residence as the place of occurrence of the external cause
CPT/HCPCS: 72170; 96374; 96375; 99285-25; J1170; J2405; J3490

== ENCOUNTER 2019-12-31 10:35 | Inpatient (IN) | payer MEDICARE, OTHER ==
[2019-12-31] MEDS ORDERED: hydrOXYzine Pamoate 25 MG Cap PO PRN (17:08)
[2019-12-31] MEDS ORDERED: traZODone 50 MG Tab PO PRN (17:08)
[2019-12-31] MEDS ORDERED: Polyethylene Glycol 3350 Powder 17 GM Packet PO PRN (17:08)
[2019-12-31] MEDS ORDERED: Metoclopramide 10 MG Tab PO PRN (17:08)
--- NOTE | 2019-12-31 17:16 | PCM.HP.2 ---
H&P History of Present Illness - General Date of Service: 12/31/19 Admit Problem/Dx: Admission Diagnosis/Problem Admission Diagnosis/Problem Dislocation of hip joint prosthesis Source of Information: Patient, Old Records History Limitations: Reports: No Limitations - History of Present Illness Initial Comments - Free Text/Narative: Admitted to [facility] after discharge from [place] where patient was treated for acute dislocation of recently placed right hip prosthesis. Here for PT prior to returning home. - Related Data Allergies/Adverse Reactions: Allergies Allergy/AdvReac Type Severity Reaction Status Date / Time fish oil Allergy Other Verified 12/26/19 18:09 meperidine [From Demerol] Allergy Other Verified 12/26/19 18:09 rosuvastatin calcium Allergy Itching Verified 12/26/19 18:09 [From Crestor] sulfamethoxazole Allergy Other Verified 12/26/19 18:09 [From Bactrim] tramadol [From Ultram] Allergy Other Verified 12/26/19 18:09 trimethoprim [From Bactrim] Allergy Other Verified 12/26/19 18:09 Home Medications: Home Meds Acetaminophen [Mapap] 325 mg PO Q4H PRN 03/11/16 [History] atorvaSTATin [Lipitor] 40 mg PO BEDTIME 03/11/16 [History] hydrOXYzine Pamoate [Vistaril] 25 mg PO BEDTIME PRN 03/11/16 [History] lisinopriL [Zestril] 10 mg PO BEDTIME 03/11/16 [History] Omeprazole 20 mg PO BEDTIME 30 Days #30 cap.sr 10/13/17 [Rx] Warfarin [Coumadin] 5 mg PO DAILY 10/13/17 [History] Metoclopramide HCl 5 mg PO Q8HR PRN 12/26/19 [History] busPIRone [Buspar] 5 mg PO BID PRN 12/26/19 [History] traZODone HCl [Trazodone HCl] 1 tab PO BEDTIME PRN 12/26/19 [History] Dorzolamide HCl/Timolol Maleat [Dorzolamide-Timolol Eye Drops] 1 drop EYEBOTH BID 12/31/19 [History] Levobunolol [Betagan 0.5% Ophth Soln] 1 drop EYEBOTH BEDTIME 12/31/19 [History] Metoprolol Succinate 50 mg PO DAILY 12/31/19 [History] Ondansetron [Zofran] 1 tab PO TID PRN 12/31/19 [History] hydroCHLOROthiazide [Hydrochlorothiazide] 1 cap PO DAILY 12/31/19 [History] polyethylene glycoL 3350 [MiraLAX] 1 packet PO DAILY PRN 12/31/19 [History] Past Medical History HEENT History: Reports: Cataract, Glaucoma, Hard of Hearing, Impaired Vision, Retinal Detachment. Denies: Allergic Rhinitis, Epistaxis, Macular Degeneration, Otitis Media Other HEENT History: Bilateral presbycusis with no current hearing aid therapy. Patient wears glasses. Previously detached retina with surgery as below Cardiovascular History: Reports: Afib, Aneurysm, Arrhythmia, High Cholesterol, Hypertension, Pacemaker, PVD, Other (See Below). 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 Left atrial enla rgement and grade 1 diastolic dysfunction by echocardiogram. Dyslipidemia and obesity. Atrial fibrillation with current Coumadin therapy. Previous PSVT. Aortic valve stenosis by clinical exam. Borderline Carotid occlusive disease. D- dimer elevation on 04/28/15 Respiratory History: Reports: Bronchitis, Recurrent, COPD, Intubation, Previous, Other (See Below). Denies: Intubation, Difficult, PE, Pneumothorax, Sleep Apnea, TB Other Respiratory History: COPD by chest x-ray with no current medical therapy. Nocturnal hypoxia not currently being treated. Benign pulmonary granulomas. Gastrointestinal History: Reports: Cholelithiasis, Chronic Constipation, Diverticulosis, Gastritis, GERD, GI Bleed, Helicobacter Pylori, PUD, Other (See Below). Denies: Celiac Disease, Chronic Diarrhea, Inflammatory Bowel Disease, Irritable Bowel Syndrome Other Gastrointestinal History: Diverticulosis with history of diverticulitis on 03/29/19. Recurrent tubular adenomas, adenomatous polyps and hyperplastic colonic polyps. Chronic gastritis with history of upper GI bleed on 08/26/08 secondary to a duodenal ulcer requiring transfusions and BiCAP coagulation. Previously treated H. pylori infection Additional umbilical hernia. Genitourinary History: Reports: Urinary Incontinence, Other (See Below). 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 SAB 2 in first trimester with no D&Cs required. Otherwise Full term without complications during pregnancies or deliveries. Menopause in 1968. Musculoskeletal History: Reports: Arthritis, Back Pain, Chronic, Gout, Neck Pain, Chronic, Osteoarthritis, Osteoporosis, Other (See Below). Denies: Fracture, RA, SLE Other Musculoskeletal History: Hyperuricemia. Polymyalgia. Positive KIMMY with no evidence of SLE. Neurological History: Reports: Headaches, Chronic, Other (See Below). Denies: Concussion, CVA, Head Trauma, Migraines, Neuropathy, Peripheral, Seizure, TIA, Vertigo Other Neuro History: INSOMNIA, Psychiatric History: Reports: Addiction, Anxiety, Depression, Other (See Below) Other Psychiatric History: Previous problems with alcohol abuse. Endocrine/Metabolic History: Reports: Hypothyroidism, Multinodular Thyroid, Obesity/BMI 30+, Other (See Below) Other Endocrine/Metabolic History: Prediabetes. Goiter. Hematologic History: Reports: Anemia, Blood Transfusion(s), Other (See Below) Other Hematologic History: Blood transfusions in 1968 and then again in July 2008 secondary to acute upper GI bleed as above. Immunologic History: Reports: None. Denies: AIDS, HIV, SLE Oncologic (Cancer) History: Reports: Cervix, Renal Other Oncologic History: Right sided grade 1/3 renal cell carcinoma with surgery as below with no radiation or chemotherapy required. Recurrent ASCUS last on 11/28/06. Dermatologic History: Reports: Seborrheic Dermatitis, Other (See Below) Other Dermatologic History: Seborrheic keratosis - Infectious Disease History Infectious Disease History: Reports: Measles - Past Surgical History Head Surgeries/Procedures: Reports: None HEENT Surgical History: Reports: Cataract Surgery, Detached Retina, Oral Surgery, Other (See Below) Other HEENT Surgeries/Procedures: Bilateral cataract surgery initially in 1993 then 1994. [place] teeth extraction with multiple additional teeth extractions. Left-sided detached retinal repair on 08/02/2002. YAG laser treatment of the posterior capsule in about 1995 Cardiovascular Surgical History: Reports: AAA Repair, Pacer, Other (See Below) Other Cardiovascular Surgeries/Procedures: Pacer replacement secondary to failed pacing on 04/29/15 with initial pacemaker placement on 06/16/07. Respiratory Surgical History: Reports: None. Denies: Thoracentesis GI Surgical History: Reports: Cholecystectomy, Colonoscopy, Hernia Repair/Other, Polypectomy, Other (See Below) Other GI Surgeries/Procedures: Last colonoscopy on 03/11/16 negative for colonic polyp recurrence with previous multiple tubular adenomas removed at time of previous colonoscopy on 10/26/12 and also during multiple previous colonoscopies.. EGD with biopsy on 10/13/17 positive for mild gastritis with negative H. pylori evaluation after previous EGD on 10/26/12. Laparoscopic cholecystectomy with concomitant umbilical hernia repair on 08/19/03. BiCAP of duodenal ulcer on 08/26/08. Female Surgical History: Reports: D&C, Other (See Below). Denies: Breast Biopsy, Section, Hysterectomy, Oophorectomy, Salpingo-Oophorectomy, Tubal Ligation Other Female Surgeries/Procedures: D&C secondary to retained placenta in about 1968. Endocrine Surgical History: Reports: None. Denies: Thyroid Biopsy Neurological Surgical History: Reports: None. Denies: C-Spine, Discectomy, Laminectomy, Lumbar Spine, Sacral Spine, Spinal Fusion, Thoracic Spine, Vertebroplasty Musculoskeletal Surgical History: Reports: Hip Replacement, Joint Replacement, Knee Replacement, Other (See Below) Other Musculoskeletal Surgeries/Procedures:: Left hip TEP on 12/04/19. Bilateral TKA in about October 2010. Oncologic Surgical History: Reports: Other (See Below) Other Oncologic Surgeries/Procedures: Right-sided radical laparoscopic nephrectomy secondary to renal cancer on 06/13/07 Dermatological Surgical History: Reports: None - Past Imaging History Past Imaging History: Reports: Cardiac Echo (Last echocardiogram on 12/07/16 showed an ejection fraction of 5560 percent with otherwise findings as above. Previous echocardiogram on 04/29/15.), Carotid US (Last on 04/17/07), CAT Scan (CT scan of the abdomen and pelvis on 03/29/19. CT of the head on 08/24/18. Negative CTA of the chest on 04/28/15.), DEXA Scan (Last on 03/29/12.), Mammogram (Last on 08/28/13.), Stress Testing ( Positive Cardiolite stress test on 01/25/13 with ejection fraction of 62%.), Ultrasound (Thyroid ultrasound on 08/29/17 and 08/23/17. Abdominal ultrasound on 08/29/17 and 04/17/07.), Upper GI X-Ray/Series (10/26/12), Venous Doppler (Right leg venous Doppler study on 12/13/19. Left leg on 05/25/12.), Other (See Below) (Last colposcopy on 04/12/07.) Social & Family History - Family History HEENT: Reports: Macular Degeneration, Other (See Below) Other HEENT Family History: Father with unknown type of blindness. Sister with macular degeneration. Cardiac: Reports: CAD, Hypertension, NC, Other (See Below) Other Cardiac Family History: Mother with NC in her 70s with fatal NC at age 81. Father with hypertension. Respiratory: Reports: Sleep Apnea, Other (See Below) Other Respiratory Family Hisory: Sister with sleep apnea. Neurological: Reports: Alzheimers Disease, CVA, Dementia, TIA, Other (See Below) Other Neurological Family History: Sister with dementia. Mother with CVA in her 70s. Brother with recurrent CVAs and TIAs since age 77. Psychiatric: Reports: Anxiety, Bipolar, Depression, Other (See Below) Other Psychiatric Family History: Nephew with bipolar disorder. Endocrine/Metabolic: Reports: Diabetes, type II, Hypothyroidism, IDDM, Other (See Below) Other Endocrine/Metabolic Family History: Mother with IDDM and goiter. Oncologic: Reports: Pancreatic, Renal, Other (See Below) Other Oncologic Family History: Mother with fatal pancreatic cancer at age 75. Niece with renal cancer in her 40s. Niece with Shyanne's disease in her 30s and additional renal cancer in her 40s. 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[employer]) H&P Review of Systems - Review of Systems: Review Of Systems: See Below General: Reports: Weight Gain (blames it on hospital food) HEENT: Denies: Dysphasia, Ear Pain, Eye Pain, Headaches, Rhinitis, Sinus Congestion, Sore Throat, Vertigo, Visual Changes Pulmonary: Reports: No Symptoms Cardiovascular: Reports: No Symptoms Gastrointestinal: Reports: No Symptoms Genitourinary: Reports: No Symptoms Musculoskeletal: Reports: Other (No acute changes from baseline other than soreness right hip s/p replacement and subsequent dislocation) Skin: Reports: Bruising (right hip area) Psychiatric: Reports: No Symptoms Neurological: Reports: No Symptoms, Other (denies new numbness/weakness) Hematologic/Lymphatic: Reports: No Symptoms Immunologic: Reports: No Symptoms Exam - Exam Exam: See Below - Vital Signs Vital Signs: Last Vital Signs Temp 37.1 C 12/31/19 16:00 Pulse 70 12/31/19 16:00 Resp 16 12/31/19 16:00 BP 137/52 L 12/31/19 16:00 Pulse Ox 97 12/31/19 16:00 Weight: 97.749 kg - Exam General: Alert, Oriented, Cooperative HEENT: Conjunctiva Clear, EACs Clear, EOMI, Hearing Intact, Mucosa Moist & Vander, Nares Patent, Normal Nasal Septum, Pupils Equal, Pupils Reactive Neck: Supple, Trachea Midline Lungs: Clear to Auscultation, Normal Respiratory Effort Cardiovascular: Regular Rate, Regular Rhythm. No: Systolic Murmur, Diastolic Murmur GI/Abdominal Exam: Normal Bowel Sounds, Soft, Non-Tender, No Distention (Female) Exam: Deferred Rectal (Female) Exam: Deferred Extremities: No Pedal Edema, Normal Capillary Refill, Other (ROM of right hip not evaluated/brace left in place). No: Increased Warmth, Mottled, Pallor, Redness Skin: Warm, Dry Neuro Extensive - Mental Status: Alert, Oriented x3, Normal Mood/Affect, Normal Cognition Sepsis Event Note - Focused Exam Vital Signs: Vital Signs Temp Pulse Resp BP Pulse Ox 12/31/19 16:00 37.1 C 70 16 137/52 L 97 Date Exam was Performed: 12/31/19 Time Exam was Performed: 17:11 - Problem List (1) Anterior dislocation of right hip SNOMED Code(s): 270697149 ICD Code: S73.034A - OTHER ANTERIOR DISLOCATION OF RIGHT HIP, INITIAL ENCOUNTER Status: Acute Priority: High Current Visit: No Onset Date: 07/16 Problem Details: Dislocation right hip 12/26/19 with transfer for [place]. Reduced. Wearing abduction brace. Discharged today and transferred here for [facility]/ongoing PT. Qualifiers: Encounter type: sequela Qualified Code(s): S73.034S - Other anterior dislocation of right hip, sequela (2) History of arthroplasty of right hip SNOMED Code(s): 622873931 ICD Code: Z98.890 - OTHER SPECIFIED POSTPROCEDURAL STATES Status: Chronic Priority: Low Current Visit: Yes Problem Details: Recent right hip arthroplasty approx one month ago. (3) Insomnia SNOMED Code(s): 425346437 ICD Code: G47.00 - INSOMNIA, UNSPECIFIED Status: Chronic Priority: Low Current Visit: Yes Problem Details: Under therapy Qualifiers: Insomnia type: unspecified Qualified Code(s): G47.00 - Insomnia, unspecified (4) Glaucoma SNOMED Code(s): 85571476 ICD Code: H40.9 - UNSPECIFIED GLAUCOMA Status: Chronic Priority: Low Current Visit: No Problem Details: under therapy Qualifiers: Glaucoma type: unspecified Laterality: unspecified laterality Qualified Code(s): H40.9 - Unspecified glaucoma (5) Hyperlipidemia SNOMED Code(s): 83217252 ICD Code: E78.5 - HYPERLIPIDEMIA, UNSPECIFIED Status: Chronic Priority: Low Current Visit: No Problem Details: under therapy Qualifiers: Hyperlipidemia type: unspecified Qualified Code(s): E78.5 - Hyperlipidemia, unspecified (6) Heart disease SNOMED Code(s): 40602340 ICD Code: I51.9 - HEART DISEASE, UNSPECIFIED Status: Chronic Priority: Low Current Visit: No Onset Date: 04/28/15 Problem Details: No recent acute changes. 100% paced rhythm. (7) Atrial fibrillation SNOMED Code(s): 64997034 ICD Code: I48.91 - UNSPECIFIED ATRIAL FIBRILLATION Status: Chronic P riority: Low Current Visit: Yes Problem Details: Repeat INR tomorrow/on Warfarin (8) COPD (chronic obstructive pulmonary disease) SNOMED Code(s): 44356720 ICD Code: J44.9 - CHRONIC OBSTRUCTIVE PULMONARY DISEASE, UNSPECIFIED Status: Chronic Priority: Low Current Visit: No Problem Details: Stable by history with no recent fever or bronchitic type symptoms. Qualifiers: COPD type: unspecified COPD Qualified Code(s): J44.9 - Chronic obstructive pulmonary disease, unspecified (9) Hypertension SNOMED Code(s): 55584736 ICD Code: I10 - ESSENTIAL (PRIMARY) HYPERTENSION Status: Chronic Germaine ority: Low Current Visit: No Problem Details: Observe trends Qualifiers: Hypertension type: essential hypertension (10) Mixed anxiety depressive disorder SNOMED Code(s): 383309330 ICD Code: F41.8 - OTHER SPECIFIED ANXIETY DISORDERS Status: Chronic Priority: Low Current Visit: No Problem Details: No acute changes. Observe. Continue to observe closely by her regular provider. (11) Osteoarthritis SNOMED Code(s): 629035554 ICD Code: M19.90 - UNSPECIFIED OSTEOARTHRITIS, UNSPECIFIED SITE Status: Chronic Priority: Medium Current Visit: No Problem Details: Otherwise Stable by history with no other significant injuries. Qualifiers: Osteoarthritis location: unspecified site (12) Peptic reflux disease SNOMED Code(s): 361777498 ICD Code: K21.9 - GASTRO-ESOPHAGEAL REFLUX DISEASE WITHOUT ESOPHAGITIS Status: Chronic Priority: Low Current Visit: No Problem Details: Stable by history with current medical therapy Problem List Initiated/Reviewed/Updated: Yes Orders Last 24hrs: Active Orders 24 hr Category Date Time Status Patient Status [ADT] Routine ADT 12/31/19 17:01 Ordered Ambulate [RC] ASDIRECTED Care 12/31/19 17:01 Ordered Height and Weight [RC] UPON Care 12/31/19 17:01 Ordered May Shower [RC] ASDIRECTED Care 12/31/19 17:01 Ordered Oxygen Therapy [RC] PRN Care 12/31/19 17:03 Ordered Pulse Oximetry [RC] PRN Care 12/31/19 17:03 Ordered Up With Assistance [RC] ASDIRECTED Care 12/31/19 17:01 Ordered Vital Signs [RC] QSHIFT Care 12/31/19 17:01 Ordered 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 [CONS] Cons 12/31/19 17:09 Ordered Routine PT Evaluation and Treatment [CONS] Routine Cons 12/31/19 17:09 Ordered Heart Healthy Diet [DIET] Diet 12/31/19 Dinner Ordered INR,PT,PROTHROMBIN TIME [COAG] AM Lab 01/01/20 05:11 Ordered Acetaminophen [Tylenol] Med 12/31/19 17:08 Ordered 325 mg PO Q4H PRN Dorzolamide HCl/Timolol Maleat [Dorzolamide-Timolol Eye Med 12/31/19 18:00 Ordered Drops] 1 drop EYEBOTH BID Levobunolol Med 12/31/19 20:00 Ordered 1 drop EYEBOTH BEDTIME Metoclopramide [Reglan] Med 12/31/19 17:08 Ordered 5 mg PO Q8HR PRN Metoprolol Succinate [Toprol XL] Med 01/01/20 08:00 Ordered 50 mg PO DAILY Omeprazole Med 12/31/19 20:00 Ordered 20 mg PO BEDTIME Ondansetron Med 12/31/19 17:08 Ordered 1 tab PO TID PRN Warfarin [Coumadin] Med 01/01/20 08:00 Ordered 5 mg PO DAILY atorvaSTATin [Lipitor] Med 12/31/19 20:00 Ordered 40 mg PO BEDTIME busPIRone [Buspar] Med 12/31/19 17:08 Ordered 5 mg PO BID PRN hydrOXYzine pamoate [Vistaril] Med 12/31/19 17:08 Ordered 25 mg PO BEDTIME PRN hydroCHLOROthiazide [Hydrochlorothiazide] Med 01/01/20 08:00 Ordered 1 cap PO DAILY lisinopriL [Prinivil] Med 12/31/19 20:00 Ordered 10 mg PO BEDTIME polyethylene glycoL 3350 [MiraLAX] Med 12/31/19 17:08 Ordered 1 packet PO DAILY PRN traZODone Med 12/31/19 17:08 Ordered 50 mg PO BEDTIME PRN Code Status [Resuscitation Status] Routine Resus Stat 12/31/19 17:07 Ordered Medication Orders Acetaminophen (Tylenol) 325 mg PO Q4H PRN PRN Reason: Pain Atorvastatin Calcium (Lipitor) 40 mg PO BEDTIME SHIRA Hydroxyzine Pamoate (Vistaril) 25 mg PO BEDTIME PRN PRN Reason: Insomnia Lisinopril (Prinivil) 10 mg PO BEDTIME SHIRA Metoclopramide HCl (Reglan) 5 mg PO Q8HR PRN PRN Reason: GERD/Heartburn Metoprolol Succinate (Toprol Xl) 50 mg PO DAILY SHIRA Non-Formulary Medication (Buspirone [Buspar]) 5 mg PO BID PRN PRN Reason: Anxiety Non-Formulary Medication (Dorzolamide Hcl/Timolol Maleat [Dorzolamide-Timolol Eye Drops]) 1 drop EYEBOTH BID SHIRA Non-Formulary Medication (Hydrochlorothiazide [Hydrochlorothiazide]) 1 cap PO DAILY [facility] Non-Formulary Medication (Levobunolol) 1 drop EYEBOTH BEDTIME SHIRA Non-Formulary Medication (Ondansetron) 1 tab PO TID PRN PRN Reason: Nausea Omeprazole (Omeprazole) 20 mg PO BEDTIME SHIRA Polyethylene Glycol (Miralax) gm PO DAILY PRN PRN Reason: Constipation Trazodone HCl (Trazodone) 50 mg PO BEDTIME PRN PRN Reason: Insomnia Warfarin Sodium (Coumadin) 5 mg PO DAILY SHIRA Assessment/Plan Comment:: as above. Continue PT for strengthening and ambulation. Patient has been doing well. Discharge home once cleared by PT. - Mortality Measure Prognosis:: Good
[2019-12-31] MEDS ORDERED: Ondansetron 4 MG Tab.DIS PO PRN (17:46)
[2019-12-31] MEDS ORDERED: DORZOLAMIDE HCL EYEBOTH SCH (18:00)
[2019-12-31] MEDS ORDERED: Timolol Maleate 0.5% Ophth Soln 5 ML Bottle EYEBOTH SCH ×2 (18:00→20:00)
[2019-12-31] MEDS ORDERED: Dorzolamide 2% Ophth Soln 10 ML Bottle EYEBOTH SCH (18:00)
[2019-12-31] MEDS ORDERED: TIMOLOL MALEAT EYEBOTH SCH (18:00)
[2019-12-31] MEDS: DORZOLAMIDE HCL EYEBOTH SCH (19:47)
[2019-12-31] MEDS: busPIRone 15 MG Tab PO SCH (19:47)
[2019-12-31] MEDS: Lisinopril 10 MG Tab PO SCH (19:47)
[2019-12-31] MEDS: TIMOLOL MALEAT EYEBOTH SCH (19:47)
[2019-12-31] MEDS: atorvaSTATin 40 MG Tab PO SCH (19:48)
[2019-12-31] MEDS: Acetaminophen 325 MG Tab PO PRN (22:20)
[2020-01-01] MEDS: Acetaminophen 325 MG Tab PO PRN ×3 (03:42→21:05)
[2020-01-01] MEDS: busPIRone 15 MG Tab PO SCH ×2 (09:23→18:26)
[2020-01-01] MEDS: Hydrochlorothiazide 25 MG Tab PO SCH (09:24)
[2020-01-01] MEDS: Omeprazole 20 MG Cap.CR PO SCH (09:26)
[2020-01-01] MEDS: Metoprolol Succinate 25 MG Tab.ER PO SCH (09:28)
[2020-01-01] MEDS: TIMOLOL MALEAT EYEBOTH SCH ×2 (10:40→19:14)
[2020-01-01] MEDS: DORZOLAMIDE HCL EYEBOTH SCH ×2 (10:40→19:14)
[2020-01-01] MEDS ORDERED: Warfarin 2.5 MG Tab PO ONE (18:00)
[2020-01-01] MEDS ORDERED: Warfarin 5 MG Tab PO SCH (18:00)
[2020-01-01] MEDS: Lisinopril 10 MG Tab PO SCH (19:14)
[2020-01-01] MEDS: atorvaSTATin 40 MG Tab PO SCH (19:14)
[2020-01-02] MEDS: Acetaminophen 325 MG Tab PO PRN ×4 (03:44→19:32)
[2020-01-02] MEDS: busPIRone 15 MG Tab PO SCH ×2 (09:07→17:07)
[2020-01-02] MEDS: Omeprazole 20 MG Cap.CR PO SCH (09:08)
[2020-01-02] MEDS: Metoprolol Succinate 25 MG Tab.ER PO SCH (09:08)
[2020-01-02] MEDS: DORZOLAMIDE HCL EYEBOTH SCH ×2 (09:09→17:07)
[2020-01-02] MEDS: TIMOLOL MALEAT EYEBOTH SCH ×2 (09:09→17:07)
[2020-01-02] MEDS: Hydrochlorothiazide 25 MG Tab PO SCH (09:09)
[2020-01-02] MEDS ORDERED: Warfarin 5 MG Tab PO ONE (18:00)
[2020-01-02] MEDS: Lisinopril 10 MG Tab PO SCH (19:32)
[2020-01-02] MEDS: atorvaSTATin 40 MG Tab PO SCH (19:32)
[2020-01-02] MEDS: Temazepam 15 MG Cap PO PRN (21:24)
[2020-01-03] MEDS: Acetaminophen 325 MG Tab PO PRN ×4 (00:37→20:04)
[2020-01-03] MEDS: Hydrochlorothiazide 25 MG Tab PO SCH (07:57)
[2020-01-03] MEDS: Omeprazole 20 MG Cap.CR PO SCH (07:57)
[2020-01-03] MEDS: Metoprolol Succinate 25 MG Tab.ER PO SCH (08:02)
[2020-01-03] MEDS: busPIRone 15 MG Tab PO SCH ×2 (08:03→17:19)
[2020-01-03] MEDS: DORZOLAMIDE HCL EYEBOTH SCH ×2 (08:06→20:06)
[2020-01-03] MEDS: TIMOLOL MALEAT EYEBOTH SCH ×2 (08:06→20:06)
[2020-01-03] MEDS ORDERED: Warfarin 5 MG Tab PO ONE (18:00)
[2020-01-03] MEDS: atorvaSTATin 40 MG Tab PO SCH (20:04)
[2020-01-03] MEDS: Lisinopril 10 MG Tab PO SCH (20:04)
[2020-01-03] MEDS: Temazepam 15 MG Cap PO PRN (21:30)
[2020-01-04] MEDS: Acetaminophen 325 MG Tab PO PRN ×3 (04:57→19:19)
[2020-01-04] MEDS: Metoprolol Succinate 25 MG Tab.ER PO SCH (07:55)
[2020-01-04] MEDS: busPIRone 15 MG Tab PO SCH ×2 (07:58→19:17)
[2020-01-04] MEDS: TIMOLOL MALEAT EYEBOTH SCH ×2 (07:59→19:18)
[2020-01-04] MEDS: Hydrochlorothiazide 25 MG Tab PO SCH (07:59)
[2020-01-04] MEDS: DORZOLAMIDE HCL EYEBOTH SCH ×2 (07:59→19:18)
[2020-01-04] MEDS: Omeprazole 20 MG Cap.CR PO SCH (07:59)
[2020-01-04] MEDS: atorvaSTATin 40 MG Tab PO SCH (19:17)
[2020-01-04] MEDS: Warfarin 5 MG Tab PO SCH (19:17)
[2020-01-04] MEDS: Lisinopril 10 MG Tab PO SCH (19:18)
[2020-01-04] MEDS: Temazepam 15 MG Cap PO PRN (21:55)
[2020-01-05] MEDS: Metoprolol Succinate 25 MG Tab.ER PO SCH (08:29)
[2020-01-05] MEDS: busPIRone 15 MG Tab PO SCH ×2 (08:30→17:56)
[2020-01-05] MEDS: Hydrochlorothiazide 25 MG Tab PO SCH (08:30)
[2020-01-05] MEDS: Omeprazole 20 MG Cap.CR PO SCH (08:30)
[2020-01-05] MEDS: Acetaminophen 325 MG Tab PO PRN ×2 (08:31→18:27)
[2020-01-05] MEDS: DORZOLAMIDE HCL EYEBOTH SCH ×2 (09:03→17:56)
[2020-01-05] MEDS: TIMOLOL MALEAT EYEBOTH SCH ×2 (09:03→17:56)
[2020-01-05] MEDS: Warfarin 5 MG Tab PO SCH (17:56)
[2020-01-05] MEDS: atorvaSTATin 40 MG Tab PO SCH (19:07)
[2020-01-05] MEDS: Lisinopril 10 MG Tab PO SCH (19:07)
[2020-01-05] MEDS: Temazepam 15 MG Cap PO PRN (22:06)
[2020-01-06] MEDS: Acetaminophen 325 MG Tab PO PRN ×3 (03:00→18:24)
[2020-01-06] MEDS: busPIRone 15 MG Tab PO SCH ×2 (07:59→17:17)
[2020-01-06] MEDS: Hydrochlorothiazide 25 MG Tab PO SCH (08:01)
[2020-01-06] MEDS: Metoprolol Succinate 25 MG Tab.ER PO SCH (08:01)
[2020-01-06] MEDS: Omeprazole 20 MG Cap.CR PO SCH (08:02)
[2020-01-06] MEDS: TIMOLOL MALEAT EYEBOTH SCH ×2 (08:02→17:19)
[2020-01-06] MEDS: DORZOLAMIDE HCL EYEBOTH SCH ×2 (08:02→17:19)
[2020-01-06] MEDS: Warfarin 5 MG Tab PO SCH (17:17)
[2020-01-06] MEDS: atorvaSTATin 40 MG Tab PO SCH (19:15)
[2020-01-06] MEDS: Lisinopril 10 MG Tab PO SCH (19:15)
[2020-01-06] MEDS: Temazepam 15 MG Cap PO PRN (20:56)
[2020-01-07] MEDS: Acetaminophen 325 MG Tab PO PRN ×5 (00:27→22:14)
[2020-01-07] MEDS: busPIRone 15 MG Tab PO SCH ×2 (07:18→17:14)
[2020-01-07] MEDS: Omeprazole 20 MG Cap.CR PO SCH (07:18)
[2020-01-07] MEDS: Hydrochlorothiazide 25 MG Tab PO SCH (07:18)
[2020-01-07] MEDS: Metoprolol Succinate 25 MG Tab.ER PO SCH (07:19)
[2020-01-07] MEDS: Warfarin 5 MG Tab PO SCH (17:14)
[2020-01-07] MEDS: DORZOLAMIDE HCL EYEBOTH SCH ×2 (17:16→17:53)
[2020-01-07] MEDS: TIMOLOL MALEAT EYEBOTH SCH ×2 (17:16→17:53)
[2020-01-07] MEDS: atorvaSTATin 40 MG Tab PO SCH (20:16)
[2020-01-07] MEDS: Lisinopril 10 MG Tab PO SCH (20:16)
[2020-01-07] MEDS: Temazepam 15 MG Cap PO PRN (22:14)
[2020-01-08] MEDS: Acetaminophen 325 MG Tab PO PRN ×2 (05:58→10:28)
[2020-01-08] MEDS: Omeprazole 20 MG Cap.CR PO SCH (08:12)
[2020-01-08] MEDS: busPIRone 15 MG Tab PO SCH (08:12)
[2020-01-08] MEDS: Hydrochlorothiazide 25 MG Tab PO SCH (08:16)
[2020-01-08] MEDS: Metoprolol Succinate 25 MG Tab.ER PO SCH (08:17)
[2020-01-08 08:18] VITALS: BP 150/72; PULSE 73
[2020-01-08] MEDS: TIMOLOL MALEAT EYEBOTH SCH (08:19)
[2020-01-08] MEDS: DORZOLAMIDE HCL EYEBOTH SCH (08:19)
--- NOTE | 2020-01-08 11:32 | PCM.DCSUM1 ---
Discharge Summary - Hospital Course Brief History: Patient admitted to [facility] for strengthening/PT after having spontaneous dislocation of right hip after recent right hip arthroplasty. Diagnosis: Stroke: No - Discharge Data Discharge Date: 01/08/20 Discharge Disposition: Home, Self-Care 01 Condition: Good - Referral to Home Health Primary Care Physician: PCP None - Discharge Diagnosis/Problem(s) (1) Anterior dislocation of right hip SNOMED Code(s): 891218059 ICD Code: S73.034A - OTHER ANTERIOR DISLOCATION OF RIGHT HIP, INITIAL ENCOUNTER Status: Acute Priority: High Current Visit: No Onset Date: 12/26/19 Problem Details: Dislocation right hip 12/26/19 with transfer for [place]. Reduced. Wearing abduction brace. Discharged and transferred here for [facility] services/ongoing PT. Doing well. Feels like she is able to return home. PT signed off and agrees patient is doing well enough to be discharged. Qualifiers: Encounter type: sequela Qualified Code(s): S73.034S - Other anterior dislocation of right hip, sequela (2) History of arthroplasty of right hip SNOMED Code(s): 294658798 ICD Code: Z98.890 - OTHER SPECIFIED POSTPROCEDURAL STATES Status: Chronic Priority: Low Current Visit: Yes Problem Details: Recent right hip arthroplasty performed 1 month prior to dislocation. (3) Insomnia SNOMED Code(s): 430295485 ICD Code: G47.00 - INSOMNIA, UNSPECIFIED Status: Chronic Priority: Low Current Visit: Yes Problem Details: Under therapy. Stable during stay. Qualifiers: Insomnia type: unspecified Qualified Code(s): G47.00 - Insomnia, unspecified (4) Glaucoma SNOMED Code(s): 65012090 ICD Code: H40.9 - UNSPECIFIED GLAUCOMA Status: Chronic Priority: Low Current Visit: No Problem Details: under therapy Qualifiers: Glaucoma type: unspecified Laterality: unspecified laterality Qualified Code(s): H40.9 - Unspecified glaucoma (5) Hyperlipidemia SNOMED Code(s): 30141943 ICD Code: E78.5 - HYPERLIPIDEMIA, UNSPECIFIED Status: Chronic Priority: Low Current Visit: No Problem Details: under therapy Qualifiers: Hyperlipidemia type: unspecified Qualified Code(s): E78.5 - Hyperlipidemia, unspecified (6) Heart disease SNOMED Code(s): 42209859 ICD Code: I51.9 - HEART DISEASE, UNSPECIFIED Status: Chronic Priority: Low Current Visit: No Onset Date: 04/28/15 Problem Details: No recent acute changes. 100% paced rhythm. (7) Atrial fibrillation SNOMED Code(s): 10228639 ICD Code: I48.91 - UNSPECIFIED ATRIAL FIBRILLATION Status: Chronic Priority: Low Current Visit: Yes Problem Details: INR has been stable. To follow up closely with PCP after discharge. Qualifiers: Atrial fibrillation type: unspecified Qualified Code(s): I48.91 - Unspecified atrial fibrillation (8) COPD (chronic obstructive pulmonary disease) SNOMED Code(s): 34091204 ICD Code: J44.9 - CHRONIC OBSTRUCTIVE PULMONARY DISEASE, UNSPECIFIED Status: Chronic Priority: Low Current Visit: No Problem Details: Stable by history with no recent fever or bronchitic type symptoms. Qualifiers: COPD type: unspecified COPD Qualified Code(s): J44.9 - Chronic obstructive pulmonary disease, unspecified (9) Hypertension SNOMED Code(s): 79708431 ICD Code: I10 - ESSENTIAL (PRIMARY) HYPERTENSION Status: Chronic Prio rity: Low Current Visit: No Problem Details: Stable during stay. Noted to have persistently elevated systolic component with often normal diastolic. To follow up with PCP for further management. Qualifiers: Hypertension type: essential hypertension Qualified Code(s): I10 - Essential (primary) hypertension (10) Mixed anxiety depressive disorder SNOMED Code(s): 348701467 ICD Code: F41.8 - OTHER SPECIFIED ANXIETY DISORDERS Status: Chronic Priority: Low Current Visit: No Problem Details: No acute changes. Continue to observe closely by her regular provider. (11) Osteoarthritis SNOMED Code(s): 791910596 ICD Code: M19.90 - UNSPECIFIED OSTEOARTHRITIS, UNSPECIFIED SITE Status: Chronic Priority: Medium Current Visit: No Problem Details: Otherwise Stable by history with no other significant injuries. Qualifiers: Osteoarthritis location: unspecified site (12) Peptic reflux disease SNOMED Code(s): 092900171 ICD Code: K21.9 - GASTRO-ESOPHAGEAL REFLUX DISEASE WITHOUT ESOPHAGITIS Status: Chronic Priority: Low Current Visit: No Problem Details: Stable by history with current medical therapy - Patient Summary/Data Consults: Consultations 12/31/19 17:09 Consult to Case Management/Food And Beverage Coordinator [CONS] Routine PT Evaluation and Treatment [CONS] Routine 01/01/20 09:28 OT Evaluation and Treatment [CONS] Routine 01/08/20 08:19 PT Evaluation and Treatment [CONS] Routine Hospital Course: Unremarkable hospital course. Worked with PT for ambulation/strengthening and ability to perform ADLs. No complications. PT feels patient is able to return home at this time. Patient has who will be able to assist her at home. - Patient Instructions Diet: Limited Carb (be mindful of carb consumption--limit sugar/baked goods/bread/pasta etc as discussed. ) Activity: As Tolerated Driving: Do Not Drive (until cleared by Ortho) Other/Special Instructions: Follow up with Ortho as arranged. Continue to wear your brace! Follow up with PT as arranged. Your INR was in good range today. Follow up closely with your primary provider regarding monitoring your INR and other ongoing concerns such as blood pressure (your systolic readings were a bit high during your stay) in case any medication adjustments need to be made. Call if you have questions or concerns, otherwise follow up as needed with your primary provider. - Discharge Plan *PRESCRIPTION DRUG MONITORING PROGRAM REVIEWED*: Not Applicable *COPY OF PRESCRIPTION DRUG MONITORING REPORT IN PATIENT KILEY: Not Applicable Home Medications: Home Meds Acetaminophen [Mapap] 650 mg PO Q4H PRN 03/11/16 [History] atorvaSTATin [Lipitor] 40 mg PO BEDTIME 03/11/16 [History] hydrOXYzine Pamoate [Vistaril] 25 mg PO BEDTIME PRN 03/11/16 [History] lisinopriL [Zestril] 10 mg PO BEDTIME 03/11/16 [History] Omeprazole 20 mg PO BEDTIME 30 Days #30 cap.sr 10/13/17 [Rx] Warfarin [Coumadin] 5 mg PO DAILY 10/13/17 [History] Metoclopramide HCl 5 mg PO Q8HR PRN 12/26/19 [History] busPIRone [Buspar] 5 mg PO BID 12/26/19 [History] traZODone HCl [Trazodone HCl] 1 tab PO BEDTIME PRN 12/26/19 [History] Dorzolamide HCl/Timolol Maleat [Dorzolamide-Timolol Eye Drops] 1 drop EYEBOTH BID 12/31/19 [History] Levobunolol [Betagan 0.5% Ophth Soln] 1 drop EYEBOTH BEDTIME 12/31/19 [History] Metoprolol Succinate 50 mg PO DAILY 12/31/19 [History] Ondansetron [Zofran] 1 tab PO TID PRN 12/31/19 [History] hydroCHLOROthiazide [Hydrochlorothiazide] 1 cap PO DAILY 12/31/19 [History] polyethylene glycoL 3350 [MiraLAX] 1 packet PO DAILY PRN 12/31/19 [History] - Discharge Summary/Plan Comment DC Time >30 min.: No - General Info Date of Service: 01/08/20 Admission Dx/Problem (Free Text: Admission Diagnosis/Problem Admission Diagnosis/Problem Dislocation of hip joint prosthesis Subjective Update: Patient feels pretty good. No acute complaints. Still has some discomfort in posterior hip/buttock that has been present since hip surgery. Not getting any worse. Functional Status: Reports: Pain Controlled, Tolerating Diet, Ambulating, Urinating. Denies: New Symptoms - Review of Systems General: Reports: No Symptoms HEENT: Denies: Headaches, Sinus Congestion, Sore Throat, Rhinitis Pulmonary: Reports: No Symptoms Cardiovascular: Reports: No Symptoms Gastrointestinal: Reports: No Symptoms Genitourinary: Reports: No Symptoms Musculoskeletal: Reports: Other (still recovering from right hip replacement and subsequent dislocation. Persistent discomfort posterior aspect of hip but it has been stable/no acute changes) Skin: Reports: No Symptoms Neurological: Reports: No Symptoms Psychiatric: Reports: No Symptoms - Patient Data Vitals - Most Recent: Last Vital Signs Temp 37.2 C 01/08/20 08:00 Pulse 73 01/08/20 08:17 Resp 16 01/08/20 08:00 BP 150/72 H 01/08/20 08:17 Pulse Ox 98 01/08/20 08:00 Weight - Most Recent: 91.444 kg Lab Results - Last 24 hrs: Laboratory Results - last 24 hr 01/08/20 Range/Units 08:30 INR 2.1 Med Orders - Current: Current Medications Acetaminophen (Tylenol) 650 mg PO Q4H PRN PRN Reason: Pain Last Admin: 01/08/20 10:28 Dose: 650 mg Documented by: Atorvastatin Calcium (Lipitor) 40 mg PO BEDTIME SHIRA Last Admin: 01/07/20 20:16 Dose: 40 mg Documented by: Buspirone HCl (Buspar) 5 mg PO BID [facility] Last Admin: 01/08/20 08:12 Dose: 5 mg Documented by: Hydrochlorothiazide (Hydrochlorothiazide) 12.5 mg PO DAILY [facility] Last Admin: 01/08/20 08:16 Dose: 12.5 mg Documented by: Hydroxyzine Pamoate (Vistaril) 25 mg PO BEDTIME PRN PRN Reason: Insomnia Last Admin: 01/01/20 00:28 Dose: 25 mg Documented by: Lisinopril (Prinivil) 10 mg PO BEDTIME [facility] Last Admin: 01/07/20 20:16 Dose: 10 mg Documented by: Metoclopramide HCl (Reglan) 5 mg PO Q8HR PRN PRN Reason: GERD/Heartburn Metoprolol Succinate (Toprol Xl) 50 mg PO DAILY [facility] Last Admin: 01/08/20 08:17 Dose: 50 mg Documented by: Dorzolamide Hcl/Timolol Maleat Ophth Soln Own Med 1 drop EYEBOTH BID [facility] Last Admin: 01/08/20 08:19 Dose: Not Given Documented by: Omeprazole (Omeprazole) 20 mg PO DAILY [facility] Last Admin: 01/08/20 08:12 Dose: 20 mg Documented by: Ondansetron HCl (Zofran Odt) 4 mg PO TID PRN PRN Reason: Nausea Polyethylene Glycol (Miralax) 17 gm PO DAILY PRN PRN Reason: Constipation Temazepam (Restoril) 15 mg PO BEDTIME PRN PRN Reason: Insomnia Last Admin: 01/07/20 22:14 Dose: 15 mg Documented by: Trazodone HCl (Trazodone) 50 mg PO BEDTIME PRN PRN Reason: Insomnia Warfarin Sodium (Coumadin) 5 mg PO DAILY@1800 [facility] Last Admin: 01/07/20 17:14 Dose: 5 mg Documented by: Discontinued Medications Dorzolamide HCl (Trusopt 2% Ophth Soln) 0 ml EYEBOTH BID [facility] Last Admin: 12/31/19 20:57 Dose: Not Given Documented by: Dorzolamide Hcl/Timolol Maleat Ophth Soln 1 drop EYEBOTH BID [facility] Last Admin: 12/31/19 19:07 Dose: Not Given Documented by: Timolol Maleate (Timoptic 0.5% Ophth Soln) 0 ml EYEBOTH BEDTIME [facility] Last Admin: 12/31/19 19:48 Dose: Not Given Documented by: Timolol Maleate (Timoptic 0.5% Ophth Soln) 0 ml EYEBOTH BID [facility] Last Admin: 12/31/19 20:57 Dose: Not Given Documented by: Warfarin Sodium (Coumadin) 5 mg PO DAILY@1800 SHIRA Warfarin Sodium (Coumadin) 2.5 mg PO ONETIME ONE Stop: 01/01/20 18:01 Last Admin: 01/01/20 18:26 Dose: 2.5 mg Documented by: Warfarin Sodium (Coumadin) 5 mg PO ONETIME ONE Stop: 01/02/20 18:01 Last Admin: 01/02/20 17:07 Dose: 5 mg Documented by: Warfarin Sodium (Coumadin) 5 mg PO ONETIME ONE Stop: 01/03/20 18:01 Last Admin: 01/03/20 17:19 Dose: 5 mg Documented by: - Exam Quality Assessment: Reports: DVT Prophylaxis General: Reports: Alert, Oriented, Cooperative, No Acute Distress HEENT: Reports: Pupils Equal, Pupils Reactive, EOMI, Mucous Membr. Moist/[place] Neck: Reports: Supple Lungs: Reports: Clear to Auscultation, Normal Respiratory Effort Cardiovascular: Reports: Regular Rate, Regular Rhythm GI/Abdominal Exam: Normal Bowel Sounds, Soft, Non-Tender, No Distention (Female) Exam: Deferred Rectal (Female) Exam: Deferred Back Exam: Denies: CVA Tenderness (L), CVA Tenderness (R), Muscle Spasm Extremities: Normal Capillary Refill, Other (equal tone/strength bilaterally upper and lower limbs. Wearing brace right hip/leg. No focal tenderness with palpation around hip.) Skin: Reports: Warm, Dry, Intact Neurological: Reports: No New Focal Deficit Psy/Mental Status: Reports: Alert, Normal Affect, Normal Mood
== END 2020-01-08 12:45 | disposition home or self-care (01) | DRG 561 ==
LOC: LL.MS 15:47 → UNDOADMIN 15:47 → LL.MS 17:01
PROVIDERS: ADMIT Emergency Medicine; ATTEND Emergency Medicine
DX: Z47.1 Aftercare following joint replacement surgery (principal); G47.00 Insomnia, unspecified; H40.9 Unspecified glaucoma; E78.5 Hyperlipidemia, unspecified; I48.91 Unspecified atrial fibrillation; J44.9 Chronic obstructive pulmonary disease, unspecified; F41.8 Other specified anxiety disorders; M19.90 Unspecified osteoarthritis, unspecified site; K21.9 Gastro-esophageal reflux disease without esophagitis; I51.9 Heart disease, unspecified; Z96.641 Presence of right artificial hip joint; Z98.42 Cataract extraction status, left eye; Z98.41 Cataract extraction status, right eye; Z95.0 Presence of cardiac pacemaker; Z90.49 Acquired absence of other specified parts of digestive tract; Z90.710 Acquired absence of both cervix and uterus; Z90.722 Acquired absence of ovaries, bilateral; Z98.51 Tubal ligation status; Z79.899 Other long term (current) drug therapy; Z88.2 Allergy status to sulfonamides; Z88.8 Allergy status to other drugs, medicaments and biological substances
CPT/HCPCS: 36416; 85610; 97110-GP; 97162-GP; 97165-GO; 97530-GP; 97535-GO; A9270-GY; Q0177

== ENCOUNTER 2020-06-02 12:19 | Emergency (ER) | payer MEDICARE, OTHER, MEDICAID ==
[2020-06-02] MEDS ORDERED: Sodium Chloride 0.9% 10 ML Syringe FLUSH PRN (12:25)
--- NOTE | 2020-06-02 12:25 | EDM.PDOC ---
ED HPI GENERAL MEDICAL PROBLEM - General Chief Complaint: Cardiovascular Problem Stated Complaint: Hypertension Time Seen by Provider: 06/02/20 12:20 Source of Information: Reports: Patient, Old Records ([facility] chart/EMR) History Limitations: Reports: No Limitations - History of Present Illness INITIAL COMMENTS - FREE TEXT/NARRATIVE: The patient was referred to the emergency room for evaluation of elevated blood pressures during physical therapy at [facility] today, including blood pressure of 210/84 and 220/90 in their facility. She states that her blood pressures have recently been under moderate control with patient only taking medications in the evening. She did take an additional lisinopril tablet this morning secondary to a home blood pressure of 180/75 at that time. At about 8 PM yesterday evening the patient had some nonspecific symptoms, including some possible dyspnea with similar type symptoms, including some unsteadiness at abou t 4 AM this morning. No history of fall or injury, however. No history of recent headaches, visual changes, diplopia, change in mental status, or other change in neurological status. The patient denies any chest pain/pressure, heart flutter, dizziness, orthostasis, orthopnea, paresthesias, recent decreased exercise tolerance, or any other anginal-type symptoms. No recent history of abdominal pain, heartburn, nausea, diarrhea, melena, gross hematochezia, or any food intolerance, including fatty foods, etc.. The patient also denies any recent fever, cough, wheezing, dyspnea, etc.. She denies any current pain or discomfort. The patient was driven to physical therapy by her earlier this morning. Onset: Today, Gradual Onset Date: 06/01/20 Onset Time: 20:00 Duration: Other (No pain) Improves with: Reports: None Worsens with: Reports: None Context: Reports: Other (As above). Denies: Sick Contact, Trauma Associated Symptoms: Denies: Confusion, Chest Pain, Cough, Diaphoresis, Fe cony/Chills, Headaches, Loss of Appetite, Malaise, Nausea/Vomiting, Rash, Shortness of Breath, Syncope, Weakness Treatments CENTRAL SERVICES TECH: Reports: Other Medication(s) (As above) - Related Data Allergies Allergy/AdvReac Type Severity Reaction Status Date / Time fish oil Allergy Other Verified 06/02/20 12:43 meperidine [From Demerol] Allergy Other Verified 06/02/20 12:43 rosuvastatin calcium Allergy Itching Verified 06/02/20 12:43 [From Crestor] sulfamethoxazole Allergy Other Verified 06/02/20 12:43 [From Bactrim] tramadol [From Ultram] Allergy Other Verified 06/02/20 12:43 trimethoprim [From Bactrim] Allergy Other Verified 06/02/20 12:43 Home Meds: Home Meds Acetaminophen [Mapap] 650 mg PO Q4H PRN 03/11/16 [History] atorvaSTATin [Lipitor] 40 mg PO BEDTIME 03/11/16 [History] Omeprazole 20 mg PO BEDTIME 30 Days #30 cap.sr 10/13/17 [Rx] Warfarin [Coumadin] 5 mg PO DAILY 10/13/17 [History] Metoclopramide HCl 5 mg PO Q8HR PRN 12/26/19 [History] traZODone HCl [Trazodone HCl] 50 mg PO BEDTIME PRN 12/26/19 [History] Dorzolamide HCl/Timolol Maleat [Dorzolamide-Timolol Eye Drops] 1 drop EYEBOTH BID 12/31/19 [History] Levobunolol [Betagan 0.5% Ophth Soln] 1 drop EYEBOTH BEDTIME 12/31/19 [History] Metoprolol Succinate 50 mg PO BEDTIME 12/31/19 [History] Furosemide [Lasix] 20 mg PO DAILY #14 tab 06/02/20 [Rx] Potassium Chloride 20 meq PO DAILY #14 tablet.er 06/02/20 [Rx] lisinopriL [Lisinopril] 10 mg PO DAILY #1 tablet 06/02/20 [Rx] Past Medical History HEENT History: Reports: Cataract, Glaucoma, Hard of Hearing, Impaired Vision, Retinal Detachment. Denies: Allergic Rhinitis, Epistaxis, Macular Degeneration, Otitis Media Other HEENT History: Bilateral presbycusis with no current hearing aid therapy. Patient wears glasses. Previously detached retina with surgery as below Cardiovascular History: Reports: Afib, Aneurysm, Arrhythmia, High Cholesterol, Hypertension, Pacemaker, PVD, Other (See Below). 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 Left atrial en largement and grade 1 diastolic dysfunction by echocardiogram. Dyslipidemia and obesity. Atrial fibrillation with current Coumadin therapy. Previous PSVT. Aortic valve stenosis by clinical exam. Borderline Carotid occlusive disease. D- dimer elevation on 04/28/15 Respiratory History: Reports: Bronchitis, Recurrent, COPD, Intubation, Previous, Other (See Below). Denies: Intubation, Difficult, PE, Pneumothorax, Sleep Apnea, TB Other Respiratory History: COPD by chest x-ray with no current medical therapy. Nocturnal hypoxia not currently being treated. Benign pulmonary granulomas. Gastrointestinal History: Reports: Cholelithiasis, Chronic Constipation, Colon Polyp, Diverticulosis, Gastritis, GERD, GI Bleed, Helicobacter Pylori, PUD, Other (See Below). Denies: Celiac Disease, Chronic Diarrhea, Hepatitis, Inflammatory Bowel Disease, Irritable Bowel Syndrome, Pancreatitis Other Gastrointestinal History: Diverticulosis with history of diverticulitis on 03/29/19. Recurrent tubular adenomas, adenomatous polyps and hyperplastic colonic polyps. Chronic gastritis with history of upper GI bleed on 08/26/08 secondary to a duodenal ulcer requiring transfusions and BiCAP coagulation. Previously treated H. pylori infection Additional umbilical hernia. Genitourinary History: Reports: Urinary Incontinence, Other (See Below). Denies: Acute Renal Failure, Chronic Renal Insuffiency, Renal Calculus, STD, UTI, Recurrent Other Genitourinary History: Right-sided renal cancer as below RN STARS History: Reports: , Spontaneous . Denies: Dysfunctional Uterine Bleeding, Endometriosis, Fibroids : 4 Para: 2 LMP (Approximate): Other (See Below) Other RN STARS History: Fibrocystic breast disease. SAB 2 in first trimester with no D&Cs required. Otherwise Full term without complications during pregnancies or deliveries. Menopause in 1968. Musculoskeletal History: Reports: Arthritis, Back Pain, Chronic, Gout, Neck Pain, Chronic, Osteoarthritis, Osteoporosis, Other (See Below). Denies: Fracture, RA, SLE Other Musculoskeletal History: Severe dislocation of her right hip on 12/26/2019 requiring surgery as below. Hyperuricemia. Polymyalgia. Positive KIMMY with no evidence of SLE. Neurological History: Reports: Headaches, Chronic, Other (See Below). Denies: Concussion, CVA, Head Trauma, Migraines, Neuropathy, Peripheral, Seizure, TIA, Vertigo Other Neuro History: INSOMNIA, Psychiatric History: Reports: Addiction, Anxiety, Depression, Other (See Below). Denies: Abuse, Victim of, ADD, ADHD, Alzheimers Disease, Psych Hospitalization(s), Psychosis, PTSD, Suicide Attempt Other Psychiatric History: Previous problems with alcohol abuse. Endocrine/Metabolic History: Reports: Hypothyroidism, Multinodular Thyroid, Obesity/BMI 30+, Other (See Below). Denies: Diabetes, Gestational, Diabetes, Type I, Diabetes, Type II, Diabetes Mellitus, Type 3c, IDDM Other Endocrine/Metabolic History: Prediabetes. Goiter. Hematologic History: Reports: Anemia, Blood Transfusion(s), Other (See Below) Other Hematologic History: Blood transfusions in 1968 and then again in July 2008 secondary to acute upper GI bleed as above. Immunologic History: Reports: None. Denies: AIDS, HIV, SLE Oncologic (Cancer) History: Reports: Cervix, Renal. Denies: Basal Cell Carcinoma, Breast, Colon, Hodgkin's Lymphoma, Leukemia, Lymphoma, Malignant Melanoma, Non-Hodgkin's Lymphoma, Ovarian, Squamous Cell Carcinoma, Uterine Other Oncologic History: Right sided grade 1/3 renal cell carcinoma with surgery as below with no radiation or chemotherapy required. Recurrent ASCUS last on 11/28/06. Dermatologic History: Reports: Seborrheic Dermatitis, Other (See Below). Denies: Eczema, Psoriasis Other Dermatologic History: Seborrheic keratosis - Infectious Disease History Infectious Disease History: Reports: Measles. Denies: C-Difficile, Chicken Pox, Meningitis, Mononucleosis, MRSA, Mumps, Novel Coronavirus, Pertussis (Whooping Cough), Rheumatic Fever, Rubella, Scarlet Fever, Shingles, TB, VRE - Past Surgical History Head Surgeries/Procedures: Reports: None HEENT Surgical History: Reports: Cataract Surgery, Detached Retina, Oral Surgery, Other (See Below). Denies: Adenoidectomy, Eye Surgery, Laser Surgery, LASIK, Myringotomy w Tube(s), Naso-Sinus Surgery, Tonsillectomy Other HEENT Surgeries/Procedures: Bilateral cataract surgery initially in 1993 then 1994. [place] teeth extraction with multiple additional teeth extractions. Left-sided detached retinal repair on 08/02/2002. YAG laser treatment of the posterior capsule in about 1995 Cardiovascular Surgical History: Reports: AAA Repair, Pacer, Other (See Below). Denies: Varicose Other Cardiovascular Surgeries/Procedures: Pacer replacement secondary to failed pacing on 04/29/15 with initial pacemaker placement on 06/16/07. Respiratory Surgical History: Reports: None. Denies: Thoracentesis GI Surgical History: Reports: Cholecystectomy, Colonoscopy, Hernia Repair/Other, Polypectomy, Other (See Below). Denies: Appendectomy, EGD, Hernia, Abdominal, Hernia, Inguinal Other GI Surgeries/Procedures: Last colonoscopy on 03/11/16 negative for colonic polyp recurrence with previous multiple tubular adenomas removed at time of previous colonoscopy on 10/26/12 and also during multiple previous colonoscopies.. EGD with biopsy on 10/13/17 positive for mild gastritis with negative H. pylori evaluation after previous EGD on 10/26/12. Laparoscopic cholecystectomy with concomitant umbilical hernia repair on 08/19/03. BiCAP of duodenal ulcer on 08/26/08. Female Surgical History: Reports: D&C, Other (See Below). Denies: Breast Biopsy, Section, Hysterectomy, Oophorectomy, Salpingo-Oophorectomy, Tubal Ligation Other Female Surgeries/Procedures: D&C secondary to retained placenta in about 1968. Endocrine Surgical History: Reports: None. Denies: Thyroid Biopsy Neurological Surgical History: Reports: None. Denies: C-Spine, Discectomy, Laminectomy, Lumbar Spine, Sacral Spine, Spinal Fusion, Thoracic Spine, Vertebroplasty Musculoskeletal Surgical History: Reports: Hip Replacement, Joint Replacement, Knee Replacement, Other (See Below). Denies: Carpal Tunnel, Ganglion Cyst Other Musculoskeletal Surgeries/Procedures:: Close reduction severe right hip TEP dislocation on 12/26/2019. Left hip TEP on 12/04/19. Bilateral TKA in about October 2010. Oncologic Surgical History: Reports: Other (See Below) Other Oncologic Surgeries/Procedures: Right-sided radical laparoscopic nephrectomy secondary to renal cancer on 06/13/07 Dermatological Surgical History: Reports: None - Past Imaging History Past Imaging History: Reports: Cardiac Echo (Last echocardiogram on 12/07/16 showed an ejection fraction of 5560 percent with otherwise findings as above. Previous echocardiogram on 04/29/15.), Carotid US (Last on 04/17/07), CAT Scan (CT scan of the abdomen and pelvis on 03/29/19. CT of the head on 08/24/18. Negative CTA of the chest on 04/28/15.), DEXA Scan (Last on 03/29/12.), Mammogram (Last on 08/28/13.), Stress Testing ( Positive Cardiolite stress test on 01/25/13 with ejection fraction of 62%.), Ultrasound (Thyroid ultrasound on 08/29/17 and 08/23/17. Abdominal ultrasound on 08/29/17 and 04/17/07.), Upper GI X-Ray/Series (10/26/12), Venous Doppler (Right leg venous Doppler study on 12/13/19. Left leg on 05/25/12.), Other (See Below) (Last colposcopy on 04/12/07.) Social & Family History - Family History HEENT: Reports: Macular Degeneration, Other (See Below). Denies: Cataract, Glaucoma, Retinal Detachment Other HEENT Family History: Father with unknown type of blindness. Sister with macular degeneration. Cardiac: Reports: CAD, Hypertension, UT, Other (See Below). Denies: Afib, Aneurysm, Blood Clots/VTE/DVT, Bypass, Heart Failure, High Cholesterol, PVD/COD, Stent, Syncope Other Cardiac Family History: Mother with UT in her 70s with fatal UT at age 81. Father with hypertension. Respiratory: Reports: Sleep Apnea, Other (See Below). Denies: Asthma, COPD, PE, Pneumothorax Other Respiratory Family Hisory: Sister with sleep apnea. Neurological: Reports: Alzheimers Disease, CVA, Dementia, TIA, Other (See Below) Other Neurological Family History: Sister with dementia. Mother with CVA in her 70s. Brother with recurrent CVAs and TIAs since age 77. Psychiatric: Reports: Anxiety, Bipolar, Depression, Other (See Below) Other Psychiatric Family History: Nephew with bipolar disorder. Endocrine/Metabolic: Reports: Diabetes, type II, Hypothyroidism, IDDM, Other (See Below) Other Endocrine/Metabolic Family History: Mother with IDDM and goiter. Oncologic: Reports: Pancreatic, Renal, Other (See Below) Other Oncologic Family History: Mother with fatal pancreatic cancer at age 75. Niece with renal cancer in her 40s. Niece with Shyanne's disease in her 30s and additional renal cancer in her 40s. - Tobacco Use Tobacco Use Status *Q: Never Tobacco User Tobacco Use Within Last Twelve Months: No Used Tobacco, but Quit: No Smoking Cessation Information Provided To Patient: No Second Hand Smoke Exposure: No Second Hand Smoke Education Provided: No - Caffeine Use Caffeine Use: Reports: Coffee (2 cups/day), Soda (Occasional). Denies: Energy Drinks, Tea - Alcohol Use Alcohol Use History: No Days Per Week of Alcohol Use: 0 Number of Drinks Per Day: 1 Total Drinks Per Week: 0 Total Drinks Per Week Comment: Occasional glass of wine. No previous DWIs, problems with alcohol abuse, etc. 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 ED EXAM, GENERAL - Physical Exam Exam: See Below Exam Limited By: No Limitations General Appearance: Alert, WD/WN, No Apparent Distress, Anxious (Mild to moderate) Eye Exam: Bilateral Eye: EOMI, Normal Fundi, Normal Inspection (No nystagmus or vertigo. The patient is wearing glasses.), PERRL Ears: Normal External Exam, Normal Canal, Normal TMs, Hearing Loss (Mild bilateral presbycusis.) Nose: Normal Inspection, Normal Mucosa, No Blood Throat/Mouth: Normal Inspection (Epic and 121 hip dislocation), Normal Lips, Normal Teeth (Multiple missing teeth.), Normal Gums, Normal Oropharynx, Normal Voice, No Airway Compromise. No: Dysphagia, Perioral Cyanosis, Other Head: Atraumatic, Normocephalic. No: Facial Tenderness Neck: Supple, Non-Tender, Full Range of Motion, Carotid Bruit (Mild bilateral carotid bruits this is more detailed honeycombing is totally stupid but that is even thinking about neck agreement are you still drinking about 4 cups of coffee a day occasional soda just drinks like 1 no soda no plan). No: Thyromegaly Respiratory/Chest: No Respiratory Distress, No Accessory Muscle Use, Chest Non- Tender, Rales (Mild bilateral basilar rales). No: Rhonchi, Wheezing, Pleural Ru b, Retractions Cardiovascular: Normal Peripheral Pulses, Regular Rate, Rhythm, No Edema, No Gallop, No JVD, No Murmur, No Rub, Extra Beats (Occasional). No: Gallop/S3, Gallop/S4, Friction Rub Peripheral Pulses: 2+: Radial (L), Radial (R), Dorsalis Pedis (L), Dorsalis Pedis (R) GI/Abdominal: Normal Bowel Sounds, Soft, Non-Tender, No Organomegaly, No Distention, No Abnormal Bruit, No Mass, Pelvis Stable, Other (Obese). No: Guarding (Female) Exam: Deferred Rectal (Female) Exam: Deferred Back Exam: Full Range of Motion, CVA Tenderness (L), CVA Tenderness (R), Decreased Range of Motion, Other (Mild scoliosis). No: Muscle Spasm, Paraspinal Tenderness, Vertebral Tenderness Extremities: Normal Inspection, Normal Range of Motion, Non-Tender, No Pedal Edema, Normal Capillary Refill. No: Joyce's Sign Neurological: Alert, Oriented, CN II-XII Intact, Normal Cognition, Normal Gait, Normal Reflexes (Negative Babinski's, finger to nose, and pronator rotation tests. No evidence of facial paresis, tongue deviation, orthostasis, etc.. Excellent reverse thought processes.), No Motor/Sensory Deficits Psychiatric: Anxious (Mild to moderate). No: Depressed Mood Skin Exam: Warm, Dry, Intact, Normal Color, No Rash. No: Diaphoretic, Wound/Incision Lymphatic: No Adenopathy Course - Vital Signs Last Recorded V/S: Last Vital Signs Temp 36.7 C 06/02/20 12:20 Pulse 67 06/02/20 13:05 Resp 15 06/02/20 13:05 BP 174/64 H 06/02/20 13:05 Pulse Ox 99 06/02/20 13:05 Vital Signs - 24 hr 06/02/20 06/02/20 06/02/20 12:20 12:25 12:45 Temperature [ 36.7 C Temporal] Pulse, 70 62 62 Peripheral [ Pulse Oximetry] Respiratory 20 20 Rate Blood Pressure 191/64 H 178/66 H 186/72 H [Right Upper Arm] O2 Sat by Pulse 99 97 Oximetry 06/02/20 13:05 Temperature [ Temporal] Pulse, 67 Peripheral [ Pulse Oximetry] Respiratory 15 Rate Blood Pressure 174/64 H [Right Upper Arm] O2 Sat by Pulse 99 Oximetry - Orders/Labs/Meds Orders: Active Orders 24 hr Category Date Time Status Obtain Past Medical Record [OM.PC] Urgent Oth 06/02/20 12:25 Active Peripheral IV Insertion Adult [OM.PC] Stat Oth 06/02/20 12:25 Ordered Resuscitation Status Stat Resus Stat 06/02/20 12:25 Ordered Labs: Laboratory Tests 06/02/20 06/02/20 06/02/20 Range/Units 12:35 12:35 12:35 WBC 5.6 (4.0-10.2) K/uL RBC 4.00 (3.77-5.09) M/uL Hgb 11.7 (11.7-15.5) g/dL Hct 36.1 (34.0-46.0) % MCV 90.3 (84.0-98.0) fL MCH 29.3 (28.2-33.3) pg MCHC 32.4 (31.7-36.0) g/dL RDW 14.3 H (11.2-14.1) % Plt Count 212 (150-350) K/uL Neut % (Auto) 69.0 (45.0-80.0) % Lymph % (Auto) 22.1 (10.0-50.0) % Robeson % (Auto) 8.2 (2.0-14.0) % Eos % (Auto) 0.5 (0.0-5.0) % Baso % (Auto) 0.2 (0.0-2.0) % Neut # (Auto) 3.86 (1.40-7.00) K/uL Lymph # (Auto) 1.24 (0.50-3.50) K/uL Robeson # (Auto) 0.46 (0.00-1.00) K/uL Eos # (Auto) 0.03 (0.00-0.50) K/uL Baso # (Auto) 0.01 (0.00-0.20) K/uL PT 24.0 H D (9.5-12.0) SEC INR 2.5 APTT 35.9 H (24.5-32.8) SEC Sodium 138 (136-145) mmol/L Potassium 3.8 (3.5-5.1) mmol/L Chloride 104 (98-107) mmol/L Carbon Dioxide 27.3 (21.0-32.0) mmol/L BUN 20 H (7-18) mg/dL Creatinine 0.88 (0.51-1.17) mg/dL Est Cr Clr Drug Dosing TNP Estimated GFR (MDRD) > 60 mL/min Glucose 143 H (74-106) mg/dL Lactic Acid (0.4-2.0) mmol/L Uric Acid 4.2 (2.6-7.2) mg/dL Calcium 8.6 (8.5-10.1) mg/dL Magnesium 1.9 (1.8-2.4) mg/dL Total Bilirubin 0.5 (0.2-1.0) mg/dL AST 20 (15-37) U/L ALT 30 (12-78) U/L Alkaline Phosphatase 88 (46-116) IU/L Creatine Kinase 94 (26-308) U/L Creatine Kinase Index 0.4 (0.0-2.5) % CK-MB (CK-2) 0.40 (0.00-3.60) ng/mL Troponin I 0.000 (0.000-0.056) ng/mL NT-Pro-B Natriuret Pep 439 H (0-125) pg/mL Total Protein 7.5 (6.4-8.2) g/dL Albumin 3.5 (3.4-5.0) g/dL TSH, Ultra Sensitive 1.960 (0.358-3.740) mIU/mL 06/02/20 Range/Units 12:35 WBC (4.0-10.2) K/uL RBC (3.77-5.09) M/uL Hgb (11.7-15.5) g/dL Hct (34.0-46.0) % MCV (84.0-98.0) fL MCH (28.2-33.3) pg MCHC (31.7-36.0) g/dL RDW (11.2-14.1) % Plt Count (150-350) K/uL Neut % (Auto) (45.0-80.0) % Lymph % (Auto) (10.0-50.0) % Robeson % (Auto) (2.0-14.0) % Eos % (Auto) (0.0-5.0) % Baso % (Auto) (0.0-2.0) % Neut # (Auto) (1.40-7.00) K/uL Lymph # (Auto) (0.50-3.50) K/uL Robeson # (Auto) (0.00-1.00) K/uL Eos # (Auto) (0.00-0.50) K/uL Baso # (Auto) (0.00-0.20) K/uL PT (9.5-12.0) SEC INR APTT (24.5-32.8) SEC Sodium (136-145) mmol/L Potassium (3.5-5.1) mmol/L Chloride (98-107) mmol/L Carbon Dioxide (21.0-32.0) mmol/L BUN (7-18) mg/dL Creatinine (0.51-1.17) mg/dL Est Cr Clr Drug Dosing Estimated GFR (MDRD) mL/min Glucose (74-106) mg/dL Lactic Acid 1.1 (0.4-2.0) mmol/L Uric Acid (2.6-7.2) mg/dL Calcium (8.5-10.1) mg/dL Magnesium (1.8-2.4) mg/dL Total Bilirubin (0.2-1.0) mg/dL AST (15-37) U/L ALT (12-78) U/L Alkaline Phosphatase (46-116) IU/L Creatine Kinase (26-308) U/L Creatine Kinase Index (0.0-2.5) % CK-MB (CK-2) (0.00-3.60) ng/mL Troponin I (0.000-0.056) ng/mL NT-Pro-B Natriuret Pep (0-125) pg/mL Total Protein (6.4-8.2) g/dL Albumin (3.4-5.0) g/dL TSH, Ultra Sensitive (0.358-3.740) mIU/mL Meds: Medications Discontinued Medications Generic Name Dose Route Start Last Admin Trade Name Freq PRN Reason Stop Dose Admin Sodium Chloride 10 ml 06/02/20 12:25 Saline Flush FLUSH ASDIRECTED PRN Keep Vein Open - Radiology Interpretation Free Text/Narrative:: monitoring coordinator shows paced rhythm with average heart rate in the 60s with occasional independent rhythm Departure - Departure Time of Disposition: 14:00 Disposition: Home, Self-Care 01 Condition: Good Clinical Impression: CHF (congestive heart failure) Prescriptions: Furosemide [Lasix] 20 mg PO DAILY #14 tab lisinopriL [Lisinopril] 10 mg PO DAILY #1 tablet Potassium Chloride 20 meq PO DAILY #14 tablet.er Instructions: Heart Failure, Self Care, [id number], Hypertension, Adult, [id number] Referrals: Olga Armenta PA-C [Primary Care Provider] - Forms: ED Department Discharge Additional Instructions: 1. Follow-up with your regular provider in 1 week for reevaluation and recommended chest x-ray and repeat CBC, INR, basic metabolic panel, troponin I, CK, CK-MB, BNP, magnesium level, and uric acid level 2. Bring all medications to the above follow-up visit and to each hospital, ER, or physician visit for verification with discussion of multiple medication changes with your regular provider at the above visit 3. Remember now you are taking your lisinopril in the morning rather than at bedtime 4. Never change medications on your own with either this facility or your regular provider to be contacted, if you have any concerns 5. You may continue with your physical therapy. 6. Take your blood pressures and pulses before your morning and evening medications and bring this record with you to the above follow-up appointment 7. Immediately after this visit verify that your cellular telephone's voicemail has been activated and is empty. Also verify that your home telephone's answering machine is operating properly and has space to receive messages. Note that it is sometimes necessary for us to be able to contact you at a later date to discuss your medical care. 8. Please remember that we are ALWAYS here for you and want to answer any questions you may have. Feel free to call the hospital any time and we call you back JED. - Problem List & Annotations (1) Hypertension SNOMED Code(s): 93871828 Code(s): I10 - ESSENTIAL (PRIMARY) HYPERTENSION Status: Chronic Priority: High Annotation/Comment:: Blood pressures have been under moderate control recently based on her history with significantly elevated blood pressures this morning without neurological deficits, anginal complaints, etc.. She was cautioned not to change her medical therapy on her own. In order to improve 24- hour blood pressure control her lisinopril will now be taken in the a.m. rather than taking all of her medications in the evening. Note additional Lasix and potassium chloride therapy as above. The patient will take home blood pressure and pulse measurements on a twice daily basis as per discharge instructions. Close follow-up by her regular provider. Qualifiers: Hypertension type: essential hypertension Qualified Code(s): I10 - Essential (primary) hypertension (2) CHF (congestive heart failure) SNOMED Code(s): 14042328 Code(s): I50.9 - HEART FAILURE, UNSPECIFIED Status: Acute Priority: High Onset Date: 06/02/20 Annotation/Comment:: Note mild BNP elevation with only minimal clinical findings for significant CHF. Patient does have intermittent dependent edema by her history. Initiate low-dose Lasix with additional potassium supplementation with caution. Close follow-up by her regular provider as per discharge instructions. Qualifiers: Heart failure type: unspecified Heart failure chronicity: acute Qualified Code(s): I50.9 - Heart failure, unspecified (3) Atrial fibrillation SNOMED Code(s): 15780825 Code(s): I48.91 - UNSPECIFIED ATRIAL FIBRILLATION Status: Chronic Priority: Low Annotation/Comment:: INR therapeutic. Repeat INR at time of follow-up visit as per discharge instructions secondary to multiple medications today. Qualifiers: Atrial fibrillation type: unspecified Qualified Code(s): I48.91 - Unspecified atrial fibrillation (4) COPD (chronic obstructive pulmonary disease) SNOMED Code(s): 99407283 Code(s): J44.9 - CHRONIC OBSTRUCTIVE PULMONARY DISEASE, UNSPECIFIED Status: Chronic Priority: Low Annotation/Comment:: Stable by history with no recent fever or bronchitic type symptoms. Qualifiers: COPD type: unspecified COPD Qualified Code(s): J44.9 - Chronic obstructive pulmonary disease, unspecified (5) Mixed anxiety depressive disorder SNOMED Code(s): 985951366 Code(s): F41.8 - OTHER SPECIFIED ANXIETY DISORDERS Status: Chronic Priority: Low Annotation/Comment:: Stable by patient history, although some anxiety component to her hypertension. Continue to observe closely by her regular provider. - Problem List Review Problem List Initiated/Reviewed/Updated: Yes - My Orders Last 24 Hours: My Active Orders 06/02/20 12:25 Obtain Past Medical Record [OM.PC] Urgent Peripheral IV Insertion Adult [OM.PC] Stat Resuscitation Status Stat - Assessment/Plan Last 24 Hours: My Active Orders 06/02/20 12:25 Obtain Past Medical Record [OM.PC] Urgent Peripheral IV Insertion Adult [OM.PC] Stat Resuscitation Status Stat Assessment:: As above. Plan: As above. Extensive precautions were given to the patient, who is in agreement with the treatment plan. See Patient Instructions for further treatment and plan.
[2020-06-02 12:56] LABS: PTT,PARTIAL THROMBOPLSTIN TIME 35.9 SEC (24.5-32.8)
[2020-06-02 13:05] VITALS: BP 174/64; PULSE 67
[2020-06-02 13:08] LABS: CHLORIDE,CL 104 mmol/L (98-107); SODIUM,NA 138 mmol/L (136-145)
== END 2020-06-02 14:00 | disposition home or self-care (01) ==
LOC: LL.ED 12:19
DX: I11.0 Hypertensive heart disease with heart failure (principal); I50.9 Heart failure, unspecified; I48.91 Unspecified atrial fibrillation; E78.00 Pure hypercholesterolemia, unspecified; J44.9 Chronic obstructive pulmonary disease, unspecified; K21.9 Gastro-esophageal reflux disease without esophagitis; E66.9 Obesity, unspecified; Z91.018 Allergy to other foods; Z88.5 Allergy status to narcotic agent; Z88.8 Allergy status to other drugs, medicaments and biological substances; Z88.2 Allergy status to sulfonamides; Z88.1 Allergy status to other antibiotic agents; Z79.01 Long term (current) use of anticoagulants; Z79.899 Other long term (current) drug therapy
CPT/HCPCS: 36415; 80053; 82550; 82553; 83605; 83735; 83880; 84443; 84484; 84550; 85025; 85610; 85730; 99284

== ENCOUNTER 2024-01-28 18:56 | Emergency (ER) | payer MEDICARE, MEDICAID ==
[2024-01-28] MEDS: cloNIDine 0.1 MG Tab PO ONE ×2 (19:15→21:41)
[2024-01-28 19:32] LABS: BASOPHILS ABSOLUTE AUTO 0.01 K/uL (0.00-0.20); BASOPHILS PERCENT AUTO 0.1 % (0.0-2.0); EOSINOPHILS ABSOLUTE AUTO 0.04 K/uL (0.00-0.50); EOSINOPHILS PERCENT AUTO 0.5 % (0.0-5.0); HEMATOCRIT 33.8 % (34.0-46.0); HEMOGLOBIN 11.2 g/dL (11.7-15.5); LYMPHOCYTES ABSOLUTE AUTO 1.25 K/uL (0.50-3.50); LYMPHOCYTES PERCENT AUTO 16.6 % (10.0-50.0); MEAN CORPUSCULAR HEMOGLOBIN 29.5 pg (28.2-33.3); MEAN CORPUSCULAR HGB CONC 33.1 g/dL (31.7-36.0); MEAN CORPUSCULAR VOLUME 88.9 fL (84.0-98.0); MONOCYTES ABSOLUTE AUTO 0.65 K/uL (0.00-1.00); MONOCYTES PERCENT AUTO 8.6 % (2.0-14.0); NEUTROPHILS ABSOLUTE AUTO 5.57 K/uL (1.40-7.00); NEUTROPHILS PERCENT AUTO 74.2 % (45.0-80.0); PLATELET COUNT,PLT 299 K/uL (150-350); RED CELL DISTRIBUTION WIDTH 13.3 % (11.2-14.1); WHITE BLOOD CELL COUNT,WBC 7.5 K/uL (4.0-10.2)
[2024-01-28 19:46] LABS: INR 2.5 (0.9-1.1); PROTHROMBIN TIME 24.5 SEC (9.0-11.1)
[2024-01-28 19:54] LABS: ALANINE AMINOTRANSFERASE,ALT 23 U/L (12-78); ALBUMIN 3.2 g/dL (3.4-5.0); ALKALINE PHOSPHATASE 67 IU/L (46-116); ANION GAP 6.4 meq/L (7-15); ASPARTATE AMNIOTRANSFERASE,AST 22 U/L (15-37); BILIRUBIN TOTAL 0.2 mg/dL (0.2-1.0); BLOOD UREA NITROGEN,BUN 15 mg/dL (7-18); CALCIUM 8.5 mg/dL (8.5-10.1); CARBON DIOXIDE,CO2 28.6 mmol/L (21.0-32.0); CHLORIDE,CL 101 mmol/L (98-107); CREATININE 0.89 mg/dL (0.51-1.17); ESTIMATED GFR 64 mL/min (>=60); GLUCOSE RANDOM 109 mg/dL (70-99); MAGNESIUM 1.8 mg/dL (1.8-2.4); POTASSIUM,K 3.6 mmol/L (3.5-5.1); PROTEIN TOTAL,TP 7.3 g/dL (6.4-8.2); SODIUM,NA 136 mmol/L (136-145)
[2024-01-28 21:01] LABS: APPEARANCE,URINE CLEAR; BILIRUBIN,URINE NEGATIVE (NEGATIVE); COLOR,URINE YELLOW; GLUCOSE,URINE NEGATIVE (NEGATIVE); KETONES,URINE NEGATIVE (NEGATIVE); LEUKOCYTE ESTERASE,URINE NEGATIVE (NEGATIVE); NITRITE,URINE NEGATIVE (NEGATIVE); OCCULT BLOOD,URINE NEGATIVE (NEGATIVE); PH,URINE 5.5 (5.0-9.0); PROTEIN,URINE NEGATIVE (NEGATIVE); UROBILINOGEN,URINE 0.2 E.U./dL (0.2-1.0)
[2024-01-28] MEDS: Metoprolol Succinate 50 MG Tab.ER PO ONE (21:11)
[2024-01-28 21:12] VITALS: BP 146/88; PULSE 80
== END 2024-01-28 21:35 | disposition home or self-care (01) ==
LOC: LL.ED 18:56
DX: I10 Essential (primary) hypertension (principal); Z91.018 Allergy to other foods; I48.91 Unspecified atrial fibrillation; J44.9 Chronic obstructive pulmonary disease, unspecified; E03.9 Hypothyroidism, unspecified; Z88.2 Allergy status to sulfonamides; Z88.5 Allergy status to narcotic agent; Z88.8 Allergy status to other drugs, medicaments and biological substances; Z79.01 Long term (current) use of anticoagulants; Z79.899 Other long term (current) drug therapy; Z95.0 Presence of cardiac pacemaker
CPT/HCPCS: 36415; 80053; 81003; 83735; 84484; 85025; 85610; 99283; 99284; A9270-GY

== ENCOUNTER → 2024-02-23 | Day surgery (SDC) | payer MEDICARE, MEDICAID ==
[~2024-02-23] MED LIST changes: -Lactated Ringers 1,000 ML IV SCH; +Midazolam 1 MG/ML 2 ML SDV ONE; +Propofol 200 MG/20 ML SDV IV ONE; +Propofol 200 MG/20 ML SDV ONE
[2024-02-23] MEDS: Lactated Ringers 1,000 ML IV SCH (12:18)
[2024-02-23 18:18] VITALS: BP 128/62; PULSE 68
== END | disposition home or self-care (01) ==
LOC: LL.SDS 11:57
PROVIDERS: ATTEND Surgery
DX: K57.30 Diverticulosis of large intestine without perforation or abscess without bleeding (principal); F41.8 Other specified anxiety disorders; E78.5 Hyperlipidemia, unspecified; I10 Essential (primary) hypertension; E03.9 Hypothyroidism, unspecified; E66.9 Obesity, unspecified; I48.0 Paroxysmal atrial fibrillation; I44.2 Atrioventricular block, complete; J44.9 Chronic obstructive pulmonary disease, unspecified; F33.0 Major depressive disorder, recurrent, mild; Z68.41 Body mass index [BMI] 40.0-44.9, adult; Z79.899 Other long term (current) drug therapy; Z79.01 Long term (current) use of anticoagulants; Z88.8 Allergy status to other drugs, medicaments and biological substances; Z88.2 Allergy status to sulfonamides
CPT/HCPCS: J2250; J2704; J7120

== ENCOUNTER 2025-02-10 22:35 | Observation (INO) | payer MEDICARE, MEDICAID ==
[2025-02-10 23:13] LABS: BASOPHILS ABSOLUTE AUTO 0.03 K/uL (0.00-0.20); BASOPHILS PERCENT AUTO 0.3 % (0.0-2.0); EOSINOPHILS ABSOLUTE AUTO 0.04 K/uL (0.00-0.50); EOSINOPHILS PERCENT AUTO 0.4 % (0.0-5.0); IMMATURE GRAN ABSOLUTE AUTO 0.02 10^3/uL (0.00-0.04); IMMATURE GRAN PERCENT AUTO 0.2 % (0.0-0.4); LYMPHOCYTES ABSOLUTE AUTO 0.89 K/uL (0.50-3.50); LYMPHOCYTES PERCENT AUTO 9.5 % (10.0-50.0); MONOCYTES ABSOLUTE AUTO 0.58 K/uL (0.00-1.00); MONOCYTES PERCENT AUTO 6.2 % (2.0-14.0); NEUTROPHILS ABSOLUTE AUTO 7.81 K/uL (1.40-7.00); NEUTROPHILS PERCENT AUTO 83.4 % (45.0-80.0); PLATELET COUNT,PLT 270 K/uL (150-350); RED BLOOD CELL COUNT 3.89 M/uL (3.77-5.09); RED CELL DISTRIBUTION WIDTH 13.8 % (11.2-14.1); WHITE BLOOD CELL COUNT,WBC 9.4 K/uL (4.0-10.2)
[2025-02-10 23:35] LABS: ALANINE AMINOTRANSFERASE,ALT 11 U/L (12-78); ASPARTATE AMNIOTRANSFERASE,AST 16 U/L (15-37); BILIRUBIN TOTAL 0.3 mg/dL (0.2-1.0); BLOOD UREA NITROGEN,BUN 17 mg/dL (7-18); CARBON DIOXIDE,CO2 27.6 mmol/L (21.0-32.0); CHLORIDE,CL 101 mmol/L (98-107); CREATININE 1.20 mg/dL (0.51-1.17); ESTIMATED GFR 44 mL/min (>=60); GLUCOSE RANDOM 115 mg/dL (70-99); POTASSIUM,K 4.0 mmol/L (3.5-5.1); PRO B-TYPE NATRIUR PEPT,BNPPRO 2955 pg/mL (0-125); PROTEIN TOTAL,TP 7.4 g/dL (6.4-8.2); SODIUM,NA 138 mmol/L (136-145)
[2025-02-11] MEDS: Sodium Chloride 0.9% 10 ML Syringe FLUSH PRN (06:12)
[2025-02-11] MEDS: Ondansetron 4 MG/2 ML SDV IVPUSH ONE (06:12)
[2025-02-11] MEDS ORDERED: Timolol Maleate 0.5% Ophth Soln 5 ML Bottle EYEBOTH SCH (08:00)
[2025-02-11 08:18] LABS: BLOOD UREA NITROGEN,BUN 17.0 mg/dL (7-18); CARBON DIOXIDE,CO2 27.5 mmol/L (21.0-32.0); CHLORIDE,CL 100.0 mmol/L (98-107); CREATININE 1.14 mg/dL (0.51-1.17); EST CRCL DRUG DOSING (CG) 31.16 mL/min; GLUCOSE RANDOM 130.0 mg/dL (70-99); POTASSIUM,K 4.2 mmol/L (3.5-5.1); SODIUM,NA 135.0 mmol/L (136-145)
[2025-02-11 08:25] LABS: ESTIMATED GFR 47.0 mL/min (>=60)
[2025-02-11] MEDS: DORZOLAMIDE EYEBOTH SCH (09:07)
[2025-02-11] MEDS: TIMOLOL EYEBOTH SCH (09:07)
[2025-02-11 09:45] LABS: INR 2.2 (0.9-1.1)
[2025-02-11 14:46] VITALS: BP 117/79; PULSE 82
== END 2025-02-11 15:12 | disposition home or self-care (01) ==
LOC: LL.ED 22:35 → LL.MS 02-11 00:05
PROVIDERS: ADMIT Emergency Medicine; ATTEND Emergency Medicine
DX: R55 Syncope and collapse (principal); M25.561 Pain in right knee; E66.9 Obesity, unspecified; Z88.8 Allergy status to other drugs, medicaments and biological substances; Z88.2 Allergy status to sulfonamides; Z68.30 Body mass index [BMI] 30.0-30.9, adult; Z79.01 Long term (current) use of anticoagulants; Z79.899 Other long term (current) drug therapy; W19.XXXA Unspecified fall, initial encounter
CPT/HCPCS: 36415; 71045; 71101-LT; 73560-RT; 80048; 80053; 83735; 83880; 84484; 85025; 85610; 93005; 93010; 96374; 97161-GP; 97165-GO; 97535-GO; 99236; 99285; A9270-GY; C1889; G0378; J2405